=== PATIENT | female | born 1965 | race Caucasian/White ===

== ENCOUNTER 2019-01-16 11:21 | Outpatient (REF) | payer BC, SELFPAY ==
--- NOTE | 2019-01-16 08:30 | PAPFT_PTH ---
PATIENT: Yumiko Mercado LOC: [facility] U#:[id number] AGE/SX: 53/F ROOM: RE01/16/[address]: DEWAYNE Bell : 1965 BED: DIS: 01/16/2019 SPEC #: [id number] RECD: 01/16/19 12:50 STATUS: ARLINE REMitra #: [id number] MILENA: 01/16/19 08:[address]: Elva Madden DEPT: [facility] Cytology RECD BY: Nancy Ceja ENTERED: 01/16/19 12:50 SP TYPE: PAPFT OTHR DR: Yisel Harman Tissues: 1 - CX/ENDOCX FOR PAP SMEARS Procedures: PAP THIN PREP/[facility]VM Screening Comments: [id number]
== END 2019-01-16 11:41 ==
LOC: LBN 11:21
PROVIDERS: PCP Nurse Practitioner; Visit Provider Nurse Practitioner Family
DX: Z12.4 Encounter for screening for malignant neoplasm of cervix (principal)
CPT/HCPCS: 88142

== ENCOUNTER 2019-01-26 00:57 | Outpatient (CLI) | payer BC, SELFPAY ==
--- NOTE | 2019-01-26 07:35 | DI.US_ITS ---
SYMPTOM/DIAGNOSIS: ABNL BLEEDING, N93.9 PELVIC ULTRASOUND: Transabdominal and transvaginal exams were performed. The uterus measures 9.1 by 4.3 by 5.5 cm. The endometrial stripe measures 5 mm. in thickness. An IUD is seen within the endometrial cavity and appears appropriately positioned. No fibroids are seen. There is a 2.1 cm. simple cyst of the left ovary. The right ovary is unremarkable. There is no free fluid or hydronephrosis. IMPRESSION: Appropriate position of IUD. No endometrial thickening or focal abnormality.
== END 2019-01-26 01:17 ==
PROVIDERS: PCP Nurse Practitioner; Visit Provider Nurse Practitioner Family
DX: N93.9 Abnormal uterine and vaginal bleeding, unspecified (principal); N83.292 Other ovarian cyst, left side; Z30.431 Encounter for routine checking of intrauterine contraceptive device
CPT/HCPCS: 76830; 76856

== ENCOUNTER 2019-02-06 15:52 | Outpatient (REF) | payer BC, SELFPAY ==
--- NOTE | 2019-02-06 14:45 | ENDO_PTH ---
PATIENT: Yumiko Mercado LOC: [facility] U#:[id number] AGE/SX: 53/F ROOM: RE02/06/[address]: Jessica Keys MD : 1965 BED: DIS: 02/06/2019 SPEC #: [id number] RECD: 02/06/19 17:12 STATUS: ARLINE REMitra #: [id number] MILENA: 02/06/19 14:[address]: Jessica Keys DEPT: Surgical Specimen RECD BY: Nancy Ceja ENTERED: 02/06/19 17:13 SP TYPE: Endo OTHR DR: Yisel Harman Tissues: 1 - ENDOCERVICAL BX/CURRETTE 2 - CERVICAL BIOPSY 3 - CERVICAL BIOPSY 4 - CERVICAL BIOPSY Procedures: GROSS AND MICRO LEVEL 4 Comments: [id number]
== END 2019-02-06 16:12 ==
LOC: LBN 15:52
PROVIDERS: PCP Nurse Practitioner; Visit Provider Obstetrics & Gynecology
DX: N93.8 Other specified abnormal uterine and vaginal bleeding (principal); N88.8 Other specified noninflammatory disorders of cervix uteri
CPT/HCPCS: 88305

== ENCOUNTER 2019-02-09 01:26 | Outpatient (CLI) | payer BC, SELFPAY ==
--- NOTE | 2019-02-09 09:00 | DI.MAMMO_ITS ---
SYMPTOM/DIAGNOSIS: PATIENT HAS IMPLANTS. SCREENING Z 12.31 MAMMOGRAM: Mammograms were interpreted according to the usual protocol including computer analysis with CAD system, tomosynthesis and C view imaging. Comparison with prior examinations. There are bilateral breast implants. Breast density category A. No suspicious masses or microcalcifications are seen. There has been no significant change compared to the prior examinations. IMPRESSION: No evidence for malignancy. Yearly mammography is recommended. Category 1-A. MQSA ASSESSMENT OF FINDINGS: Negative. Category 1. Patient will receive a letter notifying them of these results. BI-RAD category A. The breasts are almost entirely fatty.
== END 2019-02-09 01:46 ==
PROVIDERS: PCP Nurse Practitioner; Visit Provider Nurse Practitioner Family
DX: Z12.31 Encounter for screening mammogram for malignant neoplasm of breast (principal); Z98.82 Breast implant status
CPT/HCPCS: 77063; 77067

== ENCOUNTER 2019-03-07 08:52 | Outpatient (REF) | payer BC, SELFPAY ==
[2019-03-07 12:52] LABS: TSH (W/Ref FT4) 3.85 uIU/mL (0.358-3.74)
[2019-03-07 13:07] LABS: FREE T4 0.87 ng/dL (0.76-1.46)
[2019-03-07 21:23] LABS: T3,Free 3.3 pg/ml (2.8-5.3)
== END 2019-03-07 09:12 ==
LOC: NCHCN 08:52
PROVIDERS: PCP Nurse Practitioner; Visit Provider Nurse Practitioner
DX: E05.00 Thyrotoxicosis with diffuse goiter without thyrotoxic crisis or storm (principal)
CPT/HCPCS: 84439; 84443; 84481

== ENCOUNTER 2019-05-19 08:44 | Outpatient (REF) | payer BC, SELFPAY ==
--- NOTE | 2019-05-19 08:28 | ENDOMET_PTH ---
PATIENT: Yumiko Mercado LOC: [facility] U#:[id number] AGE/SX: 54/F ROOM: RE05/19/[address]: Mor Nixon MD : 1965 BED: DIS: 05/19/2019 SPEC #: [id number] RECD: 05/19/19 13:14 STATUS: ARLINE REMitra #: [id number] MILENA: 05/19/19 08:[address]: Mor Nixon DEPT: Surgical Specimen RECD BY: Nancy Ceja ENTERED: 05/19/19 13:14 SP TYPE: Endomet OTHR DR: Yisel Harman Tissues: 1 - ENDOMETRIUM BX/STEPHANYETTE Procedures: GROSS AND MICRO LEVEL 4 Comments: [id number]
== END 2019-05-19 09:04 ==
LOC: LBN 08:44
PROVIDERS: PCP Nurse Practitioner; Visit Provider Obstetrics & Gynecology
DX: N85.8 Other specified noninflammatory disorders of uterus (principal); N85.01 Benign endometrial hyperplasia; N93.8 Other specified abnormal uterine and vaginal bleeding
CPT/HCPCS: 88305

== ENCOUNTER 2019-07-28 12:38 | Outpatient (REF) | payer BC, SELFPAY ==
[2019-07-28 15:37] LABS: TSH (W/Ref FT4) 2.89 uIU/mL (0.36-3.74)
[2019-07-28 22:13] LABS: T3,Free 3.6 pg/ml (2.8-5.3)
== END 2019-07-28 12:58 ==
LOC: NCHCN 12:38
PROVIDERS: PCP Nurse Practitioner; Visit Provider Nurse Practitioner
DX: E05.00 Thyrotoxicosis with diffuse goiter without thyrotoxic crisis or storm (principal)
CPT/HCPCS: 84443; 84481

== ENCOUNTER 2020-01-22 08:57 | Outpatient (REF) | payer BC, SELFPAY ==
--- NOTE | 2020-01-22 08:30 | PAPFT_PTH ---
PATIENT: Yumiko Mercado LOC: [facility] U#:[id number] AGE/SX: 54/F ROOM: RE01/22/[address]: DEWAYNE Bell : 1965 BED: DIS: 01/22/2020 SPEC #: [id number] RECD: 01/22/20 13:02 STATUS: ARLINE REMitra #: [id number] MILENA: 01/22/20 08:[address]: Elva Madden DEPT: [facility] Cytology RECD BY: Nancy Ceja ENTERED: 01/22/20 13:02 SP TYPE: PAPFT OTHR DR: Yisel Harman Tissues: 1 - CX/ENDOCX FOR PAP SMEARS Procedures: PAP THIN PREP/UVM Screening HPV DNA PROBE Comments: [id number]
== END 2020-01-22 09:17 ==
LOC: LBN 08:57
PROVIDERS: PCP Nurse Practitioner; Visit Provider Nurse Practitioner Family
DX: Z12.4 Encounter for screening for malignant neoplasm of cervix (principal); Z11.51 Encounter for screening for human papillomavirus (HPV)
CPT/HCPCS: 88142; 87624

== ENCOUNTER 2020-02-29 07:51 | Outpatient (REF) | payer BC, SELFPAY ==
[2020-02-29 18:37] LABS: TSH (W/Ref FT4) 3.42 uIU/mL (0.36-3.74)
== END 2020-02-29 08:11 ==
LOC: NCHCN 07:51
PROVIDERS: PCP Nurse Practitioner; Visit Provider Nurse Practitioner
DX: E05.00 Thyrotoxicosis with diffuse goiter without thyrotoxic crisis or storm (principal)
CPT/HCPCS: 84443

== ENCOUNTER 2020-12-03 01:14 | Outpatient (CLI) | payer BC, SELFPAY ==
--- NOTE | 2020-12-03 | DI.MAMMO_ITS ---
EXAM: MG MAMMO SCREENING CLINICAL HISTORY: SCREENING,Z12.39 TECHNIQUE: Bilateral full field digital CC and MLO mammographic images were obtained with 3D tomosyn thesis and utilizing computer aided detection (CAD). COMPARISON: Available for comparison. FINDINGS: Masses/Architectural Distortion: None seen. There are stable bilateral breast implants again seen. Microcalcifications: No suspicious pleomorphic-type are seen. Skin Thickening/Nipple Retraction: None. IMPRESSION: 1. No significant interval change with no specific features of malignancy noted. 2. Unless there is more urgent need, screening mammography is recommended, as per [place] [employer] guidelines. BI-RADS Category 1 - Negative Breast Density - Category A - Almost entirely fatty Breast density category C or D implies that the patient has dense breast tissue. Dense breast tissue is very common and is not abnormal but dense breast tissue can make it harder to find cancer on a ma mmogram. Also, dense breast tissue may increase their breast cancer risk. This information about the result of the mammogram report was provided to the patient to raise their awareness. Use this report when you speak with the patient about their risks for breast cancer, which includes their family hist ory. At that time, you may recommend for more screening tests (Ultrasound or MRI) as they might be us eful based on their risk. A negative radiographic report should not delay biopsy if a dominant or clinically suspicious mass is present. Up to ten percent of cancers are not identified on mammography. A negative report may reinforce clinical impression. Adenosis and dense breasts may obscure an underlying neoplasm. False positive reports average 6 to 10%. Patient will receive a letter notifying them of these results.
== END 2020-12-03 01:34 ==
PROVIDERS: PCP Nurse Practitioner; Visit Provider Nurse Practitioner
DX: Z12.31 Encounter for screening mammogram for malignant neoplasm of breast (principal); Z98.82 Breast implant status
CPT/HCPCS: 77063; 77067

== ENCOUNTER 2021-11-17 17:00 | Outpatient (REF) | payer BC, SELFPAY ==
--- NOTE | 2021-11-17 15:00 | PAPFT_PTH ---
PATIENT: Yumiko Mercado LOC: [facility] U#:[id number] AGE/SX: 56/F ROOM: RE11/17/[address]: DEWAYNE Blel : 1965 BED: DIS: 11/17/2021 SPEC #: [id number] RECD: 11/17/21 17:48 STATUS: ARLINE REQ #: [id number] MILENA: 11/17/21 15:[address]: Elva Madden DEPT: [facility] Cytology RECD BY: Nancy Ceja ENTERED: 11/17/21 17:48 SP TYPE: PAPFT OTHR DR: Yisel Harman Tissues: 1 - CX/ENDOCX FOR PAP SMEARS Procedures: PAP THIN PREP/UVM Screening HPV DNA PROBE Comments: [id number]
== END 2021-11-17 17:01 | disposition home or self-care (01) ==
LOC: LBN 17:00
PROVIDERS: PCP Nurse Practitioner; Visit Provider Nurse Practitioner Family
DX: Z12.4 Encounter for screening for malignant neoplasm of cervix (principal); Z11.51 Encounter for screening for human papillomavirus (HPV)
CPT/HCPCS: 88142; 87624

== ENCOUNTER 2022-03-12 19:22 | Outpatient (REF) | payer BC, SELFPAY ==
[2022-03-12 20:42] LABS: ALT 34 U/L (14-59); AST 24 U/L (15-37); Albumin 4.2 g/dL (3.4-5.0); Alkaline Phosphatase 105 U/L (46-116); Anion Gap 8.7 mmol/L (3-11); BUN 20 mg/dL (7-18); Bilirubin, Total 0.4 mg/dL (0.2-1.0); CO2 28.3 mmol/L (21.0-32.0); CREATININE 0.9 mg/dL (0.55-1.02); Calcium 9.2 mg/dL (8.5-10.1); Chloride 104 mmol/L (98-107); FREE T4 0.99 ng/dL (0.76-1.46); Glucose 96 mg/dL (74-106); Potassium 4.1 mmol/L (3.5-5.1); Sodium 141 mmol/L (136-145); TSH 0.19 uIU/mL (0.36-3.74); Total Protein 7.5 g/dL (6.4-8.2)
[2022-03-13 17:18] LABS: T3,Free 3.7 pg/mL (2.8-5.3)
== END 2022-03-12 19:23 | disposition home or self-care (01) ==
LOC: NCHCN 19:22
PROVIDERS: PCP Nurse Practitioner; Visit Provider Nurse Practitioner Family
DX: Z00.00 Encounter for general adult medical examination without abnormal findings (principal); E05.00 Thyrotoxicosis with diffuse goiter without thyrotoxic crisis or storm
CPT/HCPCS: 80053; 84439; 84443; 84481

== ENCOUNTER 2022-12-28 16:10 | Outpatient (REF) | payer BC, SELFPAY ==
--- NOTE | 2022-12-28 16:00 | PAPFT_PTH ---
PATIENT: Yumiko Mercado LOC: [facility] U#:[id number] AGE/SX: 57/F ROOM: RE12/28/[address]: Damaris Gonzales NP : 1965 BED: DIS: 12/28/2022 SPEC #: [id number] RECD: 12/28/22 17:41 STATUS: ARLINE REMitra #: [id number] MILENA: 12/28/22 16:[address]: Damaris Gonzales NP DEPT: [facility] Cytology RECD BY: Nancy Ceja ENTERED: 12/28/22 17:42 SP TYPE: PAPFT OTHR DR: Yisel Harman Tissues: 1 - CX/ENDOCX FOR PAP SMEARS Procedures: PAP THIN PREP/UVM Screening HPV DNA PROBE Comments: [id number]
== END 2022-12-28 16:11 | disposition home or self-care (01) ==
LOC: LBN 16:10
PROVIDERS: PCP Nurse Practitioner; Visit Provider Nurse Practitioner Women's Health
DX: Z12.4 Encounter for screening for malignant neoplasm of cervix (principal); Z11.51 Encounter for screening for human papillomavirus (HPV); Z87.410 Personal history of cervical dysplasia
CPT/HCPCS: 88142; 87624

== ENCOUNTER 2023-01-04 01:15 | Outpatient (CLI) | payer BC, SELFPAY ==
--- NOTE | 2023-01-04 07:30 | DI.MAMMO_ITS ---
Exam(s) MG MAMMO SCREENING 60 MIN DUR EXAM: MG MAMMO SCREENING 60 MIN DUR CLINICAL HISTORY: breast cancer screening,AUGMENTATION MAMMOPLASTY,Z12.39 TECHNIQUE: Bilateral full field digital CC and MLO mammographic images were obtained with 3D tomosyn thesis and utilizing computer aided detection (CAD). COMPARISON: Available for comparison. FINDINGS: Masses/Architectural Distortion: There again seen stable bilateral breast implants. No suspicious ma sses or areas of architectural distortion are present. Microcalcifications: No suspicious pleomorphic-type are seen. Skin Thickening/Nipple Retraction: None. IMPRESSION: 1. No significant interval change with no specific features of malignancy noted. 2. Unless there is more urgent need, screening mammography is recommended, as per [place] [employer] guidelines. BI-RADS Category 1 - Negative Breast Density - Category A - Almost entirely fatty Breast density category C or D implies that the patient has dense breast tissue. Dense breast tissue is very common and is not abnormal but dense breast tissue can make it harder to find cancer on a ma mmogram. Also, dense breast tissue may increase their breast cancer risk. This information about the result of the mammogram report was provided to the patient to raise their awareness. Use this report when you speak with the patient about their risks for breast cancer, which includes their family hist ory. At that time, you may recommend for more screening tests (Ultrasound or MRI) as they might be us eful based on their risk. A negative radiographic report should not delay biopsy if a dominant or clinically suspicious mass is present. Up to ten percent of cancers are not identified on mammography. A negative report may reinforce clinical impression. Adenosis and dense breasts may obscure an underlying neoplasm. False positive reports average 6 to 10%. Patient will receive a letter notifying them of these results.
== END 2023-01-04 01:35 ==
LOC: DI 01:15
PROVIDERS: PCP Nurse Practitioner; Visit Provider Nurse Practitioner Women's Health
DX: Z12.31 Encounter for screening mammogram for malignant neoplasm of breast (principal); Z98.82 Breast implant status
CPT/HCPCS: 77063; 77067

== ENCOUNTER 2023-04-12 18:44 | Outpatient (REF) | payer BC, SELFPAY ==
[2023-04-12 20:17] LABS: BUN 22 mg/dL (7-18); Calcium 9.4 mg/dL (8.5-10.1); Calculated LDL 101 mg/dL (<100); Chloride 105 mmol/L (98-107); Cholesterol 182 mg/dL (<200); Estimated GFR 66.53 (mL/min/1.73m2); Glucose 88 mg/dL (74-106); HDL Cholesterol 70 mg/dL (40-60); Potassium 4.2 mmol/L (3.5-5.1); Sodium 142 mmol/L (136-145); TSH (W/Ref FT4) 3.88 uIU/mL (0.36-3.74); Triglyceride 56 mg/dL (<150)
[2023-04-12 20:35] LABS: FREE T4 0.89 ng/dL (0.76-1.46)
[2023-04-13 19:24] LABS: T3,Free 3.7 pg/mL (2.8-5.3)
== END 2023-04-12 18:45 | disposition home or self-care (01) ==
LOC: NCHCN 18:44
PROVIDERS: PCP Nurse Practitioner Family; Visit Provider Nurse Practitioner Family
DX: Z00.00 Encounter for general adult medical examination without abnormal findings (principal); E05.00 Thyrotoxicosis with diffuse goiter without thyrotoxic crisis or storm; Z13.220 Encounter for screening for lipoid disorders
CPT/HCPCS: 80048; 80061; 84439; 84443; 84481

== ENCOUNTER 2023-12-24 10:13 | Outpatient (REF) | payer BC, SELFPAY ==
--- NOTE | 2023-12-24 10:00 | ENDOMET_PTH ---
PATIENT: Yumiko Mercado LOC: [facility] U#:[id number] AGE/SX: 58/F ROOM: RE12/24/[address]: Kerri Restrepo DO : 1965 BED: DIS: 12/24/2023 SPEC #: [id number] RECD: 12/24/23 11:47 STATUS: ARLINE REQ #: [id number] MILENA: 12/24/23 10:[address]: Kerri Restrepo DEPT: Surgical Specimen RECD BY: Nancy Ceja ENTERED: 12/24/23 11:48 SP TYPE: Endomet OTHR DR: MAGALYS MAYORGA NP Tissues: 1 - ENDOMETRIUM BX/STEPHANYETTE Procedures: GROSS AND MICRO LEVEL 4 Comments: [id number]
== END 2023-12-24 10:14 | disposition home or self-care (01) ==
LOC: LBN 10:13
PROVIDERS: PCP Nurse Practitioner Family; Visit Provider Obstetrics & Gynecology
DX: N84.0 Polyp of corpus uteri (principal); N95.0 Postmenopausal bleeding; R93.89 Abnormal findings on diagnostic imaging of other specified body structures
CPT/HCPCS: 88305

== ENCOUNTER → 2024-01-18 03:56 | Outpatient (CLI) | payer BC, SELFPAY ==
--- NOTE | 2024-01-18 07:30 | DI.MAMMO_ITS ---
Exam(s) MG MAMMO SCREENING 60 MIN DUR EXAM: MG MAMMO SCREENING 60 MIN DUR CLINICAL HISTORY: breast cancer screening,IMPLANTS, Z12.39. TECHNIQUE: Bilateral full field digital CC and MLO mammographic images were obtained with 3D tomosyn thesis and utilizing computer aided detection (CAD). Both conventional and implant displacement views were performed. COMPARISON: Prior mammograms were reviewed. FINDINGS: There are intact appearing retropectoral breast implants again noted. There are no CAD designations. There are no new spiculated masses nor malignant appearing microcalcification groups. There is no significant architectural distortion nor skin thickening-retraction. IMPRESSION: No radiographic evidence of malignancy. BI-RADS Category 1 - Negative Breast Density - Category A - Almost entirely fatty Breast density Category C or D implies that the patient has dense breast tissue. Dense breast tissue can make it harder to find cancer on a mammogram. Dense breast tissue is also associated with an incr eased risk of breast cancer. This information about the result of the mammogram report was provided to the patient to raise their awareness. Use this report when you speak with the patient about their risks for breast cancer, which includes their family history. At that time, you may recommend additional screening tests (Ultrasoun d or MRI) as these tests may add significant information. A negative radiographic report should not delay biopsy if a dominant or clinically suspicious mass is present. Up to ten percent of cancers are not identified on mammography. A negative report may reinforce clinical impression. Adenosis and dense breasts may obscure an underlying neoplasm. False positive reports average 6 to 10%. Patient will receive a letter notifying them of these results.
== END ==
PROVIDERS: PCP Nurse Practitioner Family; Visit Provider Obstetrics & Gynecology
DX: Z12.31 Encounter for screening mammogram for malignant neoplasm of breast (principal)
CPT/HCPCS: 77063; 77067

== ENCOUNTER 2024-08-14 19:49 | Outpatient (REF) | payer OTHER, SELFPAY ==
[2024-08-14 18:41] LABS: Anion Gap 2.5 mmol/L (3-11); BUN 21 mg/dL (7-18); CO2 31.5 mmol/L (21.0-32.0); CREATININE 0.9 mg/dL (0.55-1.02); Calcium 9.5 mg/dL (8.5-10.1); Chloride 105 mmol/L (98-107); Estimated GFR 74.57 (mL/min/1.73m2); Glucose 91 mg/dL (74-106); Potassium 4.2 mmol/L (3.5-5.1); Sodium 139 mmol/L (136-145); TSH (W/Ref FT4) 2.25 uIU/mL (0.36-3.74)
--- OUTSIDE RECORDS SUMMARY | 2024-08-14 19:57 | XMS_ITS | Referral Summary ---
Author Organization [facility] Address [address] [place] [address] Care Team Providers Care Urologist Name Role Phone Yisel Haramn ADULT DAYCARE COORDINATOR Primary Care Provider [phone] Social History Tobacco Use Types Packs/Day Years Used Date Smoking Tobacco: Never Assessed Interpersonal Safety Answer Date Record ed Physically Hurt Never 06/30/2020 Verbally Threaten Not on file 06/30/2020 Sex and Gender Information Value Date Recorded Sex Assigned at Not on file Gender Identity Not on file Sexual Orientation Not on file Plan of Treatment Not on file Care Teams Urologist Relationship Specialty Start Date End Date Yisel Harman NP [facility] [address] [place], [place] [address] PCP - General 05/04/18
--- OUTSIDE RECORDS SUMMARY | 2024-08-14 19:57 | XMS_ITS | Encounter Summary ---
Author Organization [facility] Address [address] [place] [address] Care Team Providers Care Engineering Consultant Name Role Phone JanetYisel white VIDEO GAME REPAIR TECHNICIAN Primary Care Provider [phone] Encounter Details Date Type Department Care Team (Late st Contact Info) Description 12/30/2022 Lab Requisition [facility] Pathology & Laboratory Medicine - [address] [address] Damaris Gonzales, METAL CUT OFF SAW TENDER [address] [place] [id number] Encounter for other general examination Social History Tobacco Use Types Packs/Day Years Used Date Smoking Tobacco: Never Assessed Interpersonal Safety Answer Date Record ed Physically Hurt Never 06/30/2020 Verbally Threaten Not on file 06/30/2020 Sex and Gender Information Value Date Recorded Sex Assigned at Not on file Gender Identity Not on file Sexual Orientation Not on file documented as of this encounter Plan of Treatment Not on file documented as of this encounter Procedures Procedure Name Priority Date/Time Associated Diagnosis Comments PAP TEST Today 12/28/2022 16:00 EST Encounter for other general examination HPV DNA DETECTION WITH GENOTYPING, PCR Today 12/28/2022 16:00 EST Encounter for other general examination documented in this encounter Results * HUMAN PAPILLOMAVIRUS (HPV) DETECTION-HIGH RISK TYPES (12/28/2022 16:00 EST) HPV other High Risk types, PCR Negative Negative 01/07/2023 16:13 [facility] Comment:No E6 or E7 mRNA is detected from HPV types 16,18,31,33,35,39,45,51,52,56,58,59,66, and 68 by rn homecare mediated amplification. Papanicolaou smear specimen (specimen) CERVIX UTERI STRUCTURE / Unknown 12/28/2022 16:00 EST 01/06/2023 11:41 EST Damaris Gonzales APRN MICROBIOLOGY - GE NERAL ORDERABLES [facility] [address] [place] [address] * PAP TEST (12/28/2022 16:00 EST) Specimens A. Cervix and/or Endocervix , ThinPrep Imaging System with Manual Evaluation 01/07/2023 16:13 [facility] Specimen Adequacy Satisfactory for Evaluation - assessment of transformation zone component not applicable ( e.g. atrophy, vaginal sample, hysterectomy) 01/07/2023 16:13 [facility] General Categorization Negative for intraepithelial lesion or malignancy 01/07/2023 16:13 [facility] Attestation . 01/07/2023 16:13 [facility] at 1613 Clinical History See below 01/07/20 23 16:13 [facility] HPV The result for the Human Papillomavirus (HPV) Detection-High Risk Types is Negative. No E6 or E7 mRNA is detected from HPV types 16,18,31,33,35,39 ,45,51,52,56,58,5 9,66, and 68 by rn homecare mediated amplification.Tammy ting was performed on specimen [id number] and was resulted on 01/07/2023 1613 EST by TONI, LAB INSTRUMENT RESULTS IN 01/07/2023 16:13 [facility] Performing Lab [facility] 01/07/2023 16:13 [facility] Scanned Images 01/07/2023 16:13 EST [facility] Papanicolaou smear specimen (specimen) CERVIX UTERI STRUCTURE / Unknown 12/28/2022 16:00 EST 12/30/2022 9:43 EST Damaris Gonzales METAL CUT OFF SAW TENDER PATHOLOGY ORDERAB LES Performing Organization Address City/State/[facility] Co de Phone Number [facility] [address] [place] [address] documented in this encounter Visit Diagnoses Diagnosis Encounter for other general examination documented in this encounter Care Teams Engineering Consultant Relationship Specialty Start Date End Date Yisel Harman NP [address] [place] [address] PCP - General 05/04/18 documented as of this encounter
--- OUTSIDE RECORDS SUMMARY | 2024-08-14 19:57 | XMS_ITS | Encounter Summary ---
Author Organization [facility] Address [address] [place] [address] Care Team Providers Care Mold Design Engineer Name Role Phone Ghazal Yisel ARC CUTTER PLASMA ARC Primary Care Provider [phone] Encounter Details Date Type Department Care Team (Late st Contact Info) Description 12/24/2023 Lab Requisition [facility] Pathology & Laboratory Medicine - [facility] [address] [place] [address] Kerri Restrepo [address] [place] [address] [place] [phone] Encounter for other general examination Social History [...] Procedure Name Priority Date/Time Associated Diagnosis Comments SURGICAL PATHOLOGY Today 12/24/2023 10 :00 EST Encounter for other general examination documented in this encounter Results * SURGICAL PATHOLOGY (12/24/2023 10:00 EST) Note to Patient The following pathology results have been interpreted by your pathologist and may be available to you before your health provider has had the opportunity to review them. Please allow time for your provider to receive these results and explore management options, if applicable. 12/28/2023 10:07 [facility] Final Diagnosis A. ENDOMETRIUM, BIOPSY: - Polypoid fragments of secretory-type endometrium. 12/28/2023 10:07 [facility] Attestation There was significant resident/fellow involvement in the diagnostic evaluation of this case. By the signature below, the attending physician certifies that they have personally conducted a gross and/or microscopic examination of the described specimens and rendered or confirmed the above diagnosis. 12/28/2023 10:07 [facility] at 1007 Clinical History Thickened endometrial stripe in postmenopausal period, postmenopausal bleeding 12/28/2023 10:07 [facility] Gross Description A. Received in formalin labelled with proper patient identification (initials H, S) and endometrium is an aggregate of gee soft tissues and a scant amount of admixed blood clot (0.9 x 0.7 x 0.2 cm). Entirely submitted in A1. Brittany Palmer 12/25/2023 10:44 12/28/2023 10:07 [facility] Resident/Sean w: Da Wang MD 12/28/2023 10:07 [facility] Performing Lab [facility] 12/28/2023 10:07 [facility] Scanned Images 12/28/2023 10:07 [facility] Tissue ENDOMETRIAL STRUCTURE / Unknown 12/24/2023 10:00 EST 12/24/2023 17:03 EST Kerri Restrepo PATHOLOGY ORDERABLES [facility] [address] [place] [address] documented in this encounter Visit Diagnoses Diagnosis Encounter for other general examination documented in this encounter Care Teams Mold Design Engineer Relationship Specialty Start Date End Date Yisel Harman NP [address] [place] [address] PCP - General 05/04/18 documented as of this encounter
--- OUTSIDE RECORDS SUMMARY | 2024-08-14 19:57 | XMS_ITS | Encounter Summary ---
Author Organization [facility] Address [address] [place] [address] Care Team Providers Care Packaging Sales Representative Name Role Phone Yisel Harman FARM TRACTOR MECHANIC Primary Care Provider [phone] Encounter Details Date Type Department Care Team (Latest Contact Info) Description 05/19/2019 15:16 EDT - 05/19/2019 23:59 EDT Hospital Encounter [address] [address] Unknown, Provider, Discharge Disposition: Home or Self Care Social History Tobacco Use Types Packs/Day Years Used Date Smoking Tobacco: Never Assessed Sex and Gender Information Value Date Recorded Sex Assigned at Not on file Gender Identity Not on file Sexual Orientation Not on file documented as of this encounter Discharge Disposition Disposition Code Departure Means Destination Home or Self Senior Care documented in this encounter Plan of Treatment Not on file documented as of this encounter Visit Diagnoses Not on filedocumented in this encounter Care Teams Packaging Sales Representative Relationship Specialty Start Date End Date Yisel Harman [place] [address] PCP - General 05/04/18 documented as of this encounter
--- OUTSIDE RECORDS SUMMARY | 2024-08-14 19:57 | XMS_ITS | Encounter Summary ---
Author Organization [facility] Address [address] [place] [address] Care Team Providers Care Document Examiner Name Role Phone Yisel Pringle DESIGN AND SALES CONSULTANT Primary Care Provider [phone] Encounter Details Date Type Department Care Team (Late st Contact Info) Description 05/19/2019 Results Only [facility] [phone] Norberto Benedict MD [address] [place] [id number] Social History Tobacco Use Types Packs/Day Years Used Date Smoking Tobacco: Never Assessed Sex and Gender Information Value Date Recorded Sex Assigned at Not on file Gender Identity Not on file Sexual Orientation Not on file documented as of this encounter Plan of Treatment Not on file documented as of this encounter Procedures Procedure Name Priority Date/Time Associated Diagnosis Comments SURGICAL PATHOLOGY Routine 05/19/2019 16 :32 EDT documented in this encounter Results * SURGICAL PATHOLOGY (05/19/2019 16:32 EDT) Pathology Report: SURGICAL PATHOLOGY REPORT Reports generated via electronic interface contain original data; however they are lacking the format of the original report. Caution should be taken when reading/interpret ing unformatted reports. Name: ? MOLLY WEBER ? Accession #: ? [id number] ? : ? 1965 (Age: 54) ??F ? Collect Date: ? 05/19/2019 ? Location: ? [facility] ? Receive Date: ? 05/19/2019 ? Provider: NORBERTO BENEDICT MD Copy to: YISEL PRINGLE NP ? Final Pathologic Diagnosis: ENDOMETRIUM CORE BIOPSY: - Endometrial tissue with inactive end atrophic endometrial glands and stromal changes suspicious pole exogenous progesterone effect. Document reviewed and electronically signed by: Vasquez Gordillo MD Report ??Date: 05/23/2019 07:08 By the signature above, the attending physician certifies that he/she has personally conducted a gross and/or microscopic examination of the described specimens and rendered or confirmed the above diagnosis. Specimen(s) Received: Endometrial biopsy Clinical History: Abnormal uterine bleeding; fax results to [phone] Gross Description: ? Received in formalin labelled with proper patient identification (initials H, S) and endometrium endometrial biopsy is an aggregate of gee-bob tissue with admixed blood clot, 0.8 x 0.6 x 0.1 cm. Entirely submitted in 1. ERIKA Schrader (ASCP) 05/19/2019 5:03 PM End of Report [facility] 05/19/2019 16:3 2 EDT 05/19/2019 16:32 EDT Norberto Benedict MD PATHOLOGY ORDERABLES [facility] [address] [place] [address] documented in this encounter Visit Diagnoses Not on filedocumented in this encounter Care Teams Document Examiner Relationship Specialty Start Date End Date Yisel Pringle NP [facility] [place] [address] [place] [address] PCP - General 05/04/18 documented as of this encounter
--- OUTSIDE RECORDS SUMMARY | 2024-08-14 19:57 | XMS_ITS | Encounter Summary ---
Author Organization [facility] Address [address] [place] [address] Care Team Providers Care Furnace Cooler Name Role Phone Unknown, Provider Primary Care Provider [phone] Encounter Details Date Type Department Care Team (Late st Contact Info) Description 12/23/2015 Results Only [facility] [phone] Elva Madden, [address] [place] [address] Social History Tobacco Use Types Packs/Day Years Used Date Smoking Tobacco: Never Assessed Sex and Gender Information Value Date Recorded Sex Assigned at Not on file Gender Identity Not on file Sexual Orientation Not on file documented as of this encounter Plan of Treatment Not on file documented as of this encounter Procedures Procedure Name Priority Date/Time Associated Diagnosis Comments PAP TEST- RESULT ONLY Routine 12/23/2015 0:00 EST documented in this encounter Results * PAP TEST- RESULT ONLY (12/23/2015 0:00 EST) Pathology Report: CYTOPATHOLOGY REPORT Reports generated via electronic interface contain original data; however they are lacking the format of the original report. Caution should be taken when reading/interpreti ng unformatted reports. Name: ? MOLLY WEBER ? Accession #: ? [id number] : ? 1965 (Age: 50) ??F ?Collect Date: ? 12/23/2015 Location: ? [facility] ? Receive Date: ? 12/24/2015 Provider: ?ELVA MADDEN REAL ESTATE LAWYER Copy to: ?SOHAIL WATSON PRODUCT TEST ENGINEER ? Specimen/Source: ?Pap Test, Cervix/Endocervix, ThinPrep Imaging System with manual evaluation Last Menstrual Period: ? 11/22/2015 Previous Gynecologic Pathology: ? NATE III: 2008 ? SPECIMEN ADEQUACY ? Satisfactory for Evaluation - transformation zone component present GENERAL CATEGORIZATION ? Negative for Intraepithelial Lesion or Malignancy ? Document reviewed and electronically signed by: ? LAILA Rock(ASCP) ? Report Date: ??12/30/2015 10:27 End of Report [facility] 12/23/2015 12/24/2015 Elva Madden REAL ESTATE LAWYER PATHOLOGY ORDERABLES Performing Organization Address City/State/[facility] Co de Phone Number [facility] [address] [place] [address] documented in this encounter Visit Diagnoses Not on filedocumented in this encounter Care Teams Furnace Cooler Relationship Specialty Start Date End Date Unknown, Provider, PCP - General 10/02/15 05/03/18 documented as of this encounter
--- OUTSIDE RECORDS SUMMARY | 2024-08-14 19:57 | XMS_ITS | Encounter Summary ---
Author Organization [facility] Address [address] [place] [address] Care Team Providers Care Engineer Exhauster Name Role Phone JanetjuaquinorvilleYisel ANATOMY AND PHYSIOLOGY INSTRUCTOR Primary Care Provider [phone] Encounter Details Date Type Department Care Team (Late st Contact Info) Description 03/13/2022 Lab Requisition [facility] Pathology & Laboratory Medicine - [address] [id number] Outr Resulting Lab, Provider Social History Tobacco Use Types Packs/Day Years [...] Procedure Name Priority Date/Time Associated Diagnosis Comments T3 FREE Routine 03/12/2022 16:18 EDT documented in this encounter Results * T3 FREE (03/12/2022 16:18 EDT) T3, Free 3.7 2.8 - 5.3 pg/mL 03/13/2022 17:14 EDT [facility] Blood VENOUS BLOOD / Unknown 03/12/2022 16:18 EDT 03/13/2022 16:29 EDT Provider Outr Resulting Lab CHEMISTRY & BLOOD GAS ORDERABLES [facility] [address] [place] [address] documented in this encounter Visit Diagnoses Not on filedocumented in this encounter Care Teams Engineer Exhauster Relationship Specialty Start Date End Date Yisel Harman NP [address] [place] [address] PCP - General 05/04/18 documented as of this encounter
--- OUTSIDE RECORDS SUMMARY | 2024-08-14 19:57 | XMS_ITS | Encounter Summary ---
Author Organization [facility] Address [address] [place] [address] Care Team Providers Care Lime Kiln And Recausticizing Operator Name Role Phone Yisel Harman PYROMETALLURGICAL ENGINEER Primary Care Provider [phone] Encounter Details Date Type Department Care Team (Latest Contact Info) Description 02/06/2019 11:12 EDT - 02/06/2019 23:59 EDT Hospital Encounter [address] [address] Unknown, Provider, Discharge Disposition: Home or Self Care Social History Tobacco Use Types Packs/Day Years Used Date Smoking Tobacco: Never Assessed Sex and Gender Information Value Date Recorded Sex Assigned at Not on file Gender Identity Not on file Sexual Orientation Not on file documented as of this encounter Discharge Disposition Disposition Code Departure Means Destination Home or Self Longterm documented in this encounter Plan of Treatment Not on file documented as of this encounter Visit Diagnoses Not on filedocumented in this encounter Care Teams Lime Kiln And Recausticizing Operator Relationship Specialty Start Date End Date Yisel Harman [place] [address] PCP - General 05/04/18 documented as of this encounter
--- OUTSIDE RECORDS SUMMARY | 2024-08-14 19:57 | XMS_ITS | Encounter Summary ---
Author Organization [facility] Address [address] [place] [address] Care Team Providers Care Enterprise Systems Manager Name Role Phone JanetYisel white WASHER MACHINE Primary Care Provider [phone] Encounter Details Date Type Department Care Team (Late st Contact Info) Description 01/16/2019 Results Only [facility] [phone] Elva Madden, [address] [place] [address] Social History Tobacco Use Types [...] Diagnosis Comments PAP TEST- RESULT ONLY Routine 01/16/2019 0:00 EST documented in this encounter Results * PAP TEST- RESULT ONLY (01/16/2019 0:00 EST) Pathology Report: CYTOPATHOLOGY REPORT Reports generated via electronic interface contain original data; however they are lacking the format of the original report. Caution should be taken when reading/interpreting unformatted reports. Name: ? MOLLY WEBER ? Accession #: ? [id number] : ? 1965 (Age: 53) ??F ?Collect Date: ? 01/16/2019 Location: ? [facility] ? Receive Date: ? 01/17/2019 Provider: ?ELVA EVA SUPERVISOR [employer]HALT PAVING Copy to: ?YISEL YARY WASHER MACHINE ? Specimen/Source: ?Pap Test, Cervix, ThinPrep Imaging System with manual evaluation Last Menstrual Period: ? Hormonal/Contracepti ve Status: ? Intrauterine device Previous Gynecologic Pathology: ? NATE III: 2008 ? SPECIMEN ADEQUACY ? Satisfactory for Evaluation - transformation zone component present - scant squamous epithelial component secondary to excessive blood GENERAL CATEGORIZATION ? Other, see interpretation INTERPRETATION ? Endometrial cells present in a woman equal to or greater than age 45. Negative for Intraepithelial Lesion. EDUCATIONAL NOTES/RECOMMENDATION S ? ASCCP management guidelines advises using histologic endometrial assessment only in postmenopausal women. Benign appearing endometrial cells on Pap tests are usually a normal finding in women with regular menstrual cycles, especially if the Pap test was collected during the first half of the menstrual cycle. There is data showing that endometrial cells on Pap tests may be associated with endometrial/uterine abnormalities in post menopausal women or in perimenopausal women with abnormal bleeding. There is limited data on the significance of benign endometrial cells in post menopausal women on HRT. ??Clinical correlation is recommended. Note: ??The Pap test is not an accurate test for the screening of endometrial lesions and should not be used as a follow up in patients with clinical suspicion of endometrial pathology. An additional slide was prepared and evaluated. ? COMMENT Sap Hana Architect slides of this case were reviewed at the intradepartmental consultation conference. Dr. Frost 01/19/2019 3:32 PM ? Document reviewed and electronically signed by: ? ASHLYN FROST MD ? Report Date: ??01/19/2019 15:32 End of Report [facility] 01/16/2019 01/17/2019 Elva Madden SUPERVISOR ASPHALT PAVING PATHOLOGY ORDERABLES [facility] [address] [place] [address] documented in this encounter Visit Diagnoses Not on filedocumented in this encounter Care Teams Enterprise Systems Manager Relationship Specialty Start Date End Date Yisel Harman NP [address] [place] [address] PCP - General 05/04/18 documented as of this encounter
--- OUTSIDE RECORDS SUMMARY | 2024-08-14 19:57 | XMS_ITS | Encounter Summary ---
Author Organization [facility] Address [address] [place] [address] Care Team Providers Care Electron Beam Photo Mask Maker Name Role Phone JanetYisel white UTILITY PORTER Primary Care Provider [phone] Encounter Details Date Type Department Care Team ([facility] st Contact Info) Description 02/06/2019 Results Only [facility] [phone] Zoie Keys MD [address] [place] [address] Social History Tobacco Use Types Packs/Day Years Used Date Smoking Tobacco: Never Assessed Sex and Gender Information Value Date Recorded Sex Assigned at Not on file Gender Identity Not on file Sexual Orientation Not on file documented as of this encounter Plan of Treatment Not on file documented as of this encounter Procedures Procedure Name Priority Date/Time Associated Diagnosis Comments SURGICAL PATHOLOGY Routine 02/06/2019 22 :16 EDT documented in this encounter Results * SURGICAL PATHOLOGY (02/06/2019 22:16 EDT) Pathology Report: SURGICAL PATHOLOGY REPORT Reports generated via electronic interface contain original data; however they are lacking the format of the original report. Caution should be taken when reading/interpret ing unformatted reports. Name: ? MOLLY WEBER ? Accession #: ? [id number] ? : ? 1965 (Age: 53) ??F ? Collect Date: ? 02/06/2019 ? Location: ? [facility] ? Receive Date: ? 02/06/2019 ? Provider: ZOIE KEYS MD Copy to: SHO VELASQUEZ ULTRASONIC CLEANER YISEL PRINGLE UTILITY PORTER ? Final Pathologic Diagnosis: A. ??ENDOCERVIX, CURETTAGE: - Fragments of benign endocervical mucosa. - Superficial strips of benign squamous epithelium. - Fragments of benign lower uterine segment tissue. B. ??CERVIX, 1 O'CLOCK, BIOPSY: - Transformation zone mucosa with reactive epithelial change. C. ??CERVIX, 6 O'CLOCK, BIOPSY: - Benign squamous mucosa. D. ??CERVIX, 8 O'CLOCK, BIOPSY: - Benign transformation zone mucosa with reactive epithelial change. Document reviewed and electronically signed by: ALFONZO GALLAGHER MD Report ??Date: 02/08/2019 12:26 By the signature above, the attending physician certifies that he/she has personally conducted a gross and/or microscopic examination of the described specimens and rendered or confirmed the above diagnosis. Specimen(s) Received: A. ??ECC B. ??Cx bx at 1 o'clock C. ??Cx bx at 6 o'clock D. ??Cx bx at 8 o'clock Clinical History: Abnormal bleeding; hx LEEP and cone bx; LMP: 02/03/19 BTL Gross Description: A. ?Received in formalin labelled with proper patient identification (initials H, S) and ECC is an aggregate of gee-brown mucous (0.8 x 0.6 x 0.3 cm). Submitted in toto in A1. B. ?Received in formalin labelled with proper patient identification (initials H, S) and cx bx at 1 o'clock is an aggregate of gee-white soft tissue and mucus (0.6 x 0.5 x 0.3 cm). Submitted in toto in B1. C. ?Received in formalin labelled with proper patient identification (initials H, S) and cx bx at 6 o'clock is an aggregate of gee-brown soft tissue (0.5 x 0.5 x 0.3 cm). Submitted in toto in C1. D. ?Received in formalin labelled with proper patient identification (initials H, S) and cx bx at 8 o'clock is an aggregate of gee-white soft tissue (0.6 x 0.4 x 0.3 cm). Submitted in toto in D1. ERIKA Diaz (ASCP) 02/07/2019 8:29 AM End of Report [facility] 02/06/2019 22:1 6 EDT 02/06/2019 22:16 EDT Zoie Keys MD PATHOLOGY ORDERABLES Performing Organization Address City/State/[facility] Co de Phone Number [facility] [address] [place] [address] documented in this encounter Visit Diagnoses Not on filedocumented in this encounter Care Teams Electron Beam Photo Mask Maker Relationship Specialty Start Date End Date Yisel Pringle [place] [address] PCP - General 05/04/18 documented as of this encounter
--- OUTSIDE RECORDS SUMMARY | 2024-08-14 19:57 | XMS_ITS | Encounter Summary ---
Author Organization [facility] Address [address] [place] [address] Care Team Providers Care Aircraft Servicer Name Role Phone Unknown, Provider Primary Care Provider [phone] Encounter Details Date Type Department Care Team (Late st Contact Info) Description 01/13/2018 Results Only [facility]- [facility] [phone] Elva Madden, [address] [place] [address] Social History Tobacco Use Types [...] Diagnosis Comments PAP TEST- RESULT ONLY Routine 01/13/2018 0:00 EST documented in this encounter Results * PAP TEST- RESULT ONLY (01/13/2018 0:00 EST) Pathology Report: CYTOPATHOLOGY REPORT Reports generated via electronic interface contain original data; however they are lacking the format of the original report. Caution should be taken when reading/interpreti ng unformatted reports. Name: ? MOLLY WEBER ? Accession #: ? [id number] ? : ? 1965 (Age: 52) ??F ?Collect Date: ? 01/13/2018 ? Location: ? [facility] ? Receive Date: ? 01/14/2018 ? Provider: ELVA MADDEN PUNCH CARD OPERATOR Copy to: RAGHU PRINGLE VISITOR SERVICES TECHNICIAN ? Final Report SPECIMEN ADEQUACY ? Satisfactory for Evaluation - transformation zone component present GENERAL CATEGORIZATION ? Negative for Intraepithelial Lesion or Malignancy ?? Last Menstrual Period: 11/1017 Previous Gynecologic Pathology: NATE III: 2007 Treatment History: Cone biopsy: 2007 Specimen/Source: ??Pap Test, Cervix, ThinPrep Imaging System with manual evaluation Document reviewed and electronically signed by: ? Bal Gomez, CT(ASCP) ? Report ??Date: 01/26/2018 09:22 HPV with Pap Test ? Date Ordered: ? 01/24/2018 ? Status: ?? Signed Out ?Date Complete: ? 01/27/2018 ? By: ??System Interface ? Date Reported: ? 01/27/2018 ? Interpretation RESULT: Negative for HPV. No E6 or E7 mRNA is detected from HPV types 16,18,31,33,35, 39,45,51,52,56,58, 59,66, and 68 by dimensional inspector mediated amplification. Comments Document reviewed and electronically signed by: ? System Interface ? Report date: 01/27/2018 By the signature above, the attending physician certifies that he/she has personally conducted a gross and/or microscopic examination of the described specimens and rendered or confirmed the above diagnosis. End of Report [facility] 01/13/2018 01/14/2018 Elva Madden PUNCH CARD OPERATOR PATHOLOGY ORDERABLES [facility] [address] [place] [address] documented in this encounter Visit Diagnoses Not on filedocumented in this encounter Care Teams Aircraft Servicer Relationship Specialty Start Date End Date Unknown, Provider, PCP - General 10/02/15 05/03/18 documented as of this encounter
--- OUTSIDE RECORDS SUMMARY | 2024-08-14 19:57 | XMS_ITS | Encounter Summary ---
Author Organization [facility] Address [address] [place] [address] Care Team Providers Care Radio Commentator Name Role Phone Unknown, Provider Primary Care Provider [phone] Encounter Details Date Type Department Care Team (Late st Contact Info) Description 05/02/2018 Results Only [facility] [phone] Fran Miller MD [address] [place] [address] [place] [address] Social History Tobacco Use Types Packs/Day Years Used Date Smoking Tobacco: Never Assessed Sex and Gender Information Value Date Recorded Sex Assigned at Not on file Gender Identity Not on file Sexual Orientation Not on file documented as of this encounter Plan of Treatment Not on file documented as of this encounter Procedures Procedure Name Priority Date/Time Associated Diagnosis Comments SURGICAL PATHOLOGY Routine 05/02/2018 16 :16 EDT documented in this encounter Results * SURGICAL PATHOLOGY (05/02/2018 16:16 EDT) Pathology Report: SURGICAL PATHOLOGY REPORT Reports generated via electronic interface contain original data; however they are lacking the format of the original report. Caution should be taken when reading/interpret ing unformatted reports. Name: ? MOLLY WEBER ? Accession #: ? [id number] ? : ? 1965 (Age: 53) ??F ? Collect Date: ? 05/02/2018 ? Location: ? [facility] ? Receive Date: ? 05/02/2018 ? Provider: FRAN MILLER MD Copy to: RAGHU PRINGLE VIDEO POKER FLOORMAN ? Final Pathologic Diagnosis: COLON, TRANSVERSE POLYP, POLYPECTOMY: - Fragment of unremarkable colonic mucosa. - No polypoid lesion noted (multiple levels examined). ?? Document reviewed and electronically signed by: SORAIDA SALCIDO MD Report ??Date: 05/03/2018 16:09 By the signature above, the attending physician certifies that he/she has personally conducted a gross and/or microscopic examination of the described specimens and rendered or confirmed the above diagnosis. Specimen(s) Received: Transverse colon polyp Clinical History: Screening Gross Description: ? Received in formalin labelled with proper patient identification (initials H, S) and transverse colon polyp are two gee-pink tissues (averaging 0.3 x 0.2 x 0.1 cm). Submitted in toto in 1. ERIKA Farias (ASCP) 05/02/2018 4:24 PM End of Report [facility] 05/02/2018 16:1 6 EDT 05/02/2018 16:16 EDT Fran Miller MD PATHOLOGY ORDERA DOM [facility] [address] [place] [address] documented in this encounter Visit Diagnoses Not on filedocumented in this encounter Care Teams Radio Commentator Relationship Specialty Start Date End Date Unknown, Provider, PCP - General 10/02/15 05/03/18 documented as of this encounter
--- OUTSIDE RECORDS SUMMARY | 2024-08-14 19:57 | XMS_ITS | Encounter Summary ---
Author Organization [facility] Address [address] [place] [address] Care Team Providers Care Fbi Profiler Name Role Phone Unknown, Provider Primary Care Provider [phone] Encounter Details Date Type Department Care Team (Late st Contact Info) Description 12/24/[address] [facility] [phone] Elva Madden, [address] [place] [address] Social History Tobacco Use Types [...] Diagnosis Comments PAP TEST- RESULT ONLY Routine 12/24/2016 0:00 EST documented in this encounter Results * PAP TEST- RESULT ONLY (12/24/2016 0:00 EST) Pathology Report: CYTOPATHOLOGY REPORT Reports generated via electronic interface contain original data; however they are lacking the format of the original report. Caution should be taken when reading/interpreti ng unformatted reports. Name: ? MOLLY WEBER ? Accession #: ? [id number] : ? 1965 (Age: 51) ??F ?Collect Date: ? 12/24/2016 Location: ? [facility] ? Receive Date: ? 12/25/2016 Provider: ?ELVA MADDEN BANK AND SAVINGS SECURITIES TRADER Copy to: ?RAGHU PRINGLE DRUG ABUSE RESISTANCE EDUCATION OFFICER ? Specimen/Source: ?Pap Test, Cervix, ThinPrep Imaging System with manual evaluation Last Menstrual Period: ? 12/14/2016 Hormonal/Contracep tive Status: ? Intrauterine device: Mirena Previous Gynecologic Pathology: ? NATE III: 2008 Treatment History: ? Cone biopsy: 2008 ? SPECIMEN ADEQUACY ? Satisfactory for Evaluation - transformation zone component present GENERAL CATEGORIZATION ? Negative for Intraepithelial Lesion or Malignancy INTERPRETATION ? Reactive cellular changes associated with inflammation present (includes repair). ? Document reviewed and electronically signed by: ? KASANDRA SANCHES MD ? Report Date: ??12/30/2016 17:18 End of Report [facility] 12/24/2016 12/25/2016 Elva Madden BANK AND SAVINGS SECURITIES TRADER PATHOLOGY ORDERABLES [facility] [address] [place] [address] documented in this encounter Visit Diagnoses Not on filedocumented in this encounter Care Teams Fbi Profiler Relationship Specialty Start Date End Date Unknown, Provider, PCP - General 10/02/15 05/03/18 documented as of this encounter
--- OUTSIDE RECORDS SUMMARY | 2024-08-14 19:57 | XMS_ITS | Clinical Summary ---
Author Organization [facility] Address [address] [place] [address] Care Team Providers Care Senior Master Scheduler Name Role Phone Yisel Harman NP Primary Care Provider [phone] Social History Tobacco Use Types Packs/Day Years Used Date Smoking Tobacco: Never Assessed Interpersonal Safety Answer Date Record ed Physically Hurt Never 06/30/2020 Verbally Threaten Not on file 06/30/2020 Sex and Gender Information Value Date Recorded Sex Assigned at Not on file Gender Identity Not on file Sexual Orientation Not on file Plan of Treatment Health Maintenance Due Date Last Done Comments Hepatitis C Screen 1965 Hepatitis B Vaccine (1 of 3 - 19+ 3-dose series) 04/16 COVID-19 Vaccine (2022- season) 2023 Care Teams Senior Master Scheduler Relationship Specialty Start Date End Date Yisel Harman NP [address] [place], [place] [address] PCP - General 6/6/18
--- OUTSIDE RECORDS SUMMARY | 2024-08-14 19:57 | XMS_ITS | Encounter Summary ---
Author Organization [facility] Address [address] [place] [address] Care Team Providers Care Composition Weatherboard Installer Name Role Phone JanetYisel white REPAIR ARMATURE WINDER HELPER Primary Care Provider [phone] Encounter Details Date Type Department Care Team (Late st Contact Info) Description 11/18/2021 Lab Requisition [facility] Pathology & Laboratory Medicine - [address] [address] Elva Madden, [address] [place] [phone] Encounter for other general examination Social History [...] Date/Time Associated Diagnosis Comments PAP TEST Today 11/17/2021 3:00 EST Encounter for other general examination HPV DNA DETECTION WITH GENOTYPING, PCR Today 11/17/2021 3:00 EST Encounter for other general examination documented in this encounter Results * HUMAN PAPILLOMAVIRUS (HPV) DETECTION-HIGH RISK TYPES (11/17/2021 3:00 EST) HPV other High Risk types, PCR Negative Negative 11/27/2021 7:17 [facility] Comment:No E6 or E7 mRNA is detected from HPV types 16,18,31,33,35,39,45,51,52,56,58,59,66, and 68 by antique dealer mediated amplification. Papanicolaou smear specimen (specimen) CERVIX UTERI STRUCTURE / Unknown 11/17/2021 3:00 EST 11/25/2021 14:58 EST Elva Pottergood COLLECTION AGENT MICROBIOLOGY - GENER AL ORDERABLES [facility] [address] [place] [address] * PAP TEST (11/17/2021 3:00 EST) Specimens A. Cervix and/or Endocervix , ThinPrep Imaging System with Manual Evaluation 11/27/2021 7:17 [facility] Specimen Adequacy Satisfactory for Evaluation - transformation zone component present Scant due to excessive blood 11/27/2021 7:17 [facility] General Categorization Negative for intraepithelial lesion or malignancy 11/27/2021 7:17 [facility] Attestation . 11/27/2021 7:17 [facility] at 0717 Clinical History SEE BELOW 11/27/20 7:17 [facility] HPV The result for the Human Papillomavirus (HPV) Detection-High Risk Types is Negative. No E6 or E7 mRNA is detected from HPV types 16,18,31,33,35,39 ,45,51,52,56,58,5 9,66, and 68 by antique dealer mediated amplification.Tammy ting was performed on specimen [id number] and was resulted on 11/27/2021 0713 EST by TONI, LAB INSTRUMENT RESULTS IN 11/27/2021 7:17 [facility] Performing Lab [facility] 11/27/2021 7:17 [facility] Scanned Images 11/27/2021 7:17 EST [facility] Papanicolaou smear specimen (specimen) CERVIX UTERI STRUCTURE / Unknown 11/17/2021 3:00 EST 11/18/2021 13:34 EST Elva Fidel Chano COLLECTION AGENT PATHOLOGY ORDERABLES [facility] [address] [place] [address] documented in this encounter Visit Diagnoses Diagnosis Encounter for other general examination documented in this encounter Care Teams Composition Weatherboard Installer Relationship Specialty Start Date End Date Yisel Harman NP [address] [place] [address] PCP - General 05/04/18 documented as of this encounter
--- OUTSIDE RECORDS SUMMARY | 2024-08-14 19:57 | XMS_ITS | Encounter Summary ---
Author Organization [facility] Address [address] [place] [address] Care Team Providers Care Wheat Inspector Name Role Phone Unknown, Provider Primary Care Provider [phone] Encounter Details Date Type Department Care Team (Latest Contact Info) Description 05/02/2018 11:28 EDT - 05/02/2018 23:59 EDT Hospital Encounter [address] [address] Unknown, Provider, Discharge Disposition: Home or Self Care Social History Tobacco Use Types Packs/Day Years Used Date Smoking Tobacco: Never Assessed Sex and Gender Information Value Date Recorded Sex Assigned at Not on file Gender Identity Not on file Sexual Orientation Not on file documented as of this encounter Discharge Disposition Disposition Code Departure Means Destination Home or Self [facility] documented in this encounter Plan of Treatment Not on file documented as of this encounter Visit Diagnoses Not on filedocumented in this encounter Care Teams Wheat Inspector Relationship Specialty Start Date End Date Unknown, Provider, PCP - General 10/02/15 05/03/18 documented as of this encounter
--- OUTSIDE RECORDS SUMMARY | 2024-08-14 19:57 | XMS_ITS | Encounter Summary ---
Author Organization [facility] Address [address] [place] [address] Care Team Providers Care Traveling Phlebotomist Name Role Phone Janetcindy Yisel CRIME SCENE TECHNICIAN Primary Care Provider [phone] Encounter Details Date Type Department Care Team (Late st Contact Info) Description 01/23/2020 Lab Requisition [facility] Pathology & Laboratory Medicine - [address] [address] Elva Madden, [address] [place] [phone] Encounter for other general examination Social History [...] Date/Time Associated Diagnosis Comments PAP TEST Today 01/22/2020 8:30 EST Encounter for other general examination HPV DNA DETECTION WITH GENOTYPING, PCR Today 01/22/2020 8:30 EST Encounter for other general examination documented in this encounter Results * HUMAN PAPILLOMAVIRUS (HPV) DETECTION-HIGH RISK TYPES (01/22/2020 8:30 EST) HPV other High Risk types, PCR Negative Negative 02/01/2020 15:09 EST [facility] Comment:No E6 or E7 mRNA is detected from HPV types 16,18,31,33,35,39,45,51,52,56,58,59,66, and 68 by transportation maintenance operator mediated amplification. Papanicolaou smear specimen (specimen) CERVIX UTERI STRUCTURE / Unknown 01/22/2020 8:30 EST 01/31/2020 12:14 EST Elva Madden IN [employer]BER MICROBIOLOGY - GENER AL ORDERABLES [facility] [address] [place] [address] * PAP TEST (01/22/2020 8:30 EST) Specimens A. Cervix and/or Endocervix, , ThinPrep Imaging System with Manual Evaluation 02/01/2020 15:09 [facility] Specimen Adequacy Satisfactory for Evaluation - transformation zone component present 02/01/2020 15:09 [facility] General Categorization Negative for intraepithelial lesion or malignancy 02/01/2020 15:09 [facility] Attestation By the signature below, the attending physician certifies that they have personally conducted a gross and/or microscopic examination of the described specimens and rendered or confirmed the above diagnosis. 02/01/2020 15:09 [facility] at 1509 Clinical History SEE ORDER COMMENTS 02/01/2020 15:09 [facility] HPV The result for the Human Papillomavirus (HPV) Detection-High Risk Types is Negative. No E6 or E7 mRNA is detected from HPV types 16,18,31,33,35,39 ,45,51,52,56,58,5 9,66, and 68 by transportation maintenance operator mediated amplification.Tammy ting was performed on specimen [id number] and was resulted on 02/01/2020 1505 EST by TONI, LAB INSTRUMENT RESULTS IN 02/01/2020 15:09 [facility] Scanned Images 02/01/2020 15:09 [facility] Papanicolaou smear specimen (specimen) CERVIX UTERI STRUCTURE / Unknown 01/22/2020 8:30 EST 01/23/2020 9:55 EST Elva Madden IN [employer] PATHOLOGY ORDERABLES Performing Organization Address City/State/[facility] Co de Phone Number [facility] [address] [place] [address] documented in this encounter Visit Diagnoses Diagnosis Encounter for other general examination documented in this encounter Care Teams Traveling Phlebotomist Relationship Specialty Start Date End Date Yisel [place] [address] [address] [place] [address] PCP - General 05/04/18 documented as of this encounter
--- OUTSIDE RECORDS SUMMARY | 2024-08-14 19:57 | XMS_ITS | Encounter Summary ---
Author Organization [facility] Address [address] [place] [address] Care Team Providers Care Safety Teacher Name Role Phone JanetjuaquinorvilleYisel FINANCIAL PROJECT MANAGER Primary Care Provider [phone] Encounter Details Date Type Department Care Team (Late st Contact Info) Description 04/13/2023 Lab Requisition [facility] Pathology & Laboratory Medicine - [address] [address] Outr Resulting Lab, Provider Social History Tobacco [...] Date/Time Associated Diagnosis Comments T3 FREE Routine 04/12/2023 16:30 EDT documented in this encounter Results * T3 FREE (04/12/2023 16:30 EDT) T3, Free 3.7 2.8 - 5.3 pg/mL 04/13/2023 19:19 EDT [facility] Blood VENOUS BLOOD / Unknown 04/12/2023 16:30 EDT 04/13/2023 17:42 EDT Provider Outr Resulting Lab CHEMISTRY & BLOOD GAS ORDERABLES [facility] [address] [place] [address] documented in this encounter Visit Diagnoses Not on filedocumented in this encounter Care Teams Safety Teacher Relationship Specialty Start Date End Date Yisel Harman NP [address] [place] [address] PCP - General 05/04/18 documented as of this encounter
--- OUTSIDE RECORDS SUMMARY | 2024-08-14 19:58 | XMS_ITS | Encounter Summary ---
Author Organization [facility] [place] [address] Care Team Providers Care Extras Casting Director Name Role Phone Priscilla Salvador YEFRI Primary Care Provider [phone] Encounter Details Date Type Department Care Team (Late st Contact Info) Description 01/02/2014 Orders Only [place] [address] Bin Mark MD [facility] [place] [address] Hyperthyroidism Social History Tobacco Use Types Packs/Day Years Used Date Smoking Tobacco: Every Day Cigarettes 1 20 Sex and Gender Information Value Date Recorded Sex Assigned at Not on file Gender Identity Not on file Sexual Orientation Not on file documented as of this encounter Plan of Treatment Not on file documented as of this encounter Results * (ABNORMAL) T3 (01/23/2014 4:44 PM EST) T3 Total 195(EXTERNA L/ABN) Blood specimen (specimen) Duyen Garcia MD CHEMISTRY ORDERAB LES * (ABNORMAL) T4, free (01/23/2014 4:44 PM EST) Free T4 1.70(INSIDE SALES RECRUITER AL/ABN) Blood specimen (specimen) Duyen Garcia MD CHEMISTRY ORDERAB LES documented in this encounter Visit Diagnoses Diagnosis Hyperthyroidism Thyrotoxicosis without mention of goiter or other cause, without mention of thyrotoxic crisis or storm documented in this encounter Care Teams Extras Casting Director Relationship Specialty Start Date End Date Priscilla Salvador, YEFRI [facility] [address] [place] [address] PCP - General 10/21/10 documented as of this encounter
--- OUTSIDE RECORDS SUMMARY | 2024-08-14 19:58 | XMS_ITS | Encounter Summary ---
Author Organization [facility] Address [address] [place] [address] Care Team Providers Care Separator Operator Name Role Phone Unavailable Primary Care Provider Unavailabl e Encounter Details Date Type Department Care Team (Late st Contact Info) Description 11/02/2013 Results Only [facility] Laboratory Services - [facility] ([facility] [address] [place], [place] [address] Elva Madden, [facility] [address] [place] [address] [place] [phone] Social History Tobacco Use Types Packs/Day Years [...] Diagnosis Comments PAP TEST- RESULT ONLY Routine 11/02/2013 0:00 EST documented in this encounter Results * PAP TEST- RESULT ONLY (11/02/2013 0:00 EST) Pathology Report: CYTOPATHOLOGY REPORT Reports generated via electronic interface contain original data; however they are lacking the format of the original report. Caution should be taken when reading/interpreti ng unformatted reports. Name: ? MOLLY WEBER ? Accession #: ? [id number] : ? 1965 (Age: 48) ??F ?Collect Date: ? 11/02/2013 Location: ? [facility] ? Receive Date: ? 11/03/2013 Provider: ?ELVA MADDEN HUMAN RESOURCES RECRUITER Copy to: ?SOHAIL WATSON PLATE SHOP HELPER ? Specimen/Source: ?Pap Test, Cervix/Endocervix, ThinPrep Imaging System with manual evaluation Last Menstrual Period: ? 10/16/2013 Previous Gynecologic Pathology: ? NATE III: 2007 Treatment History: ? Cone biopsy ? SPECIMEN ADEQUACY ? Satisfactory for Evaluation - transformation zone component present GENERAL CATEGORIZATION ? Negative for Intraepithelial Lesion or Malignancy ? Document reviewed and electronically signed by: ? LAILA Ladd(ASCP) ? Report Date: ??11/08/2013 09:08 End of Report [facility] P[facility] 11/02/2013 11/03/2013 Elva Madden HUMAN RESOURCES RECRUITER PATHOLOGY ORDERABLES [facility] P[facility] [address] [place] [address] documented in this encounter Visit Diagnoses Not on filedocumented in this encounter
--- OUTSIDE RECORDS SUMMARY | 2024-08-14 19:58 | XMS_ITS | Encounter Summary ---
Author Organization [facility] [place] [place] [address] Care Team Providers Care Director Federal Name Role Phone Priscilla Salvador APRN Primary Care Provider [phone] Encounter Details Date Type Department Care Team (Late st Contact Info) Description 02/01/2014 Telephone [place] [phone] Bin Mark MD [facility] [place] [address] Social History Tobacco Use Types Packs/Day Years Used Date Smoking Tobacco: Every Day Cigarettes 1 20 Sex and Gender Information Value Date Recorded Sex Assigned at Not on file Gender Identity Not on file Sexual Orientation Not on file documented as of this encounter Miscellaneous Notes * Telephone Encounter - Bin Mark MD - 02/01/2014 1:33 PM EST Spoke to Ms Mercado. Informed her that her thyroid levels are improving but still very slightly high so will still continue methimazole 30 mg daily and recheck thyroid labs in 2 weeks and change doseaccordingly. documented in this encounter Plan of Treatment Not on file documented as of this encounter Visit Diagnoses Not on filedocumented in this encounter Care Teams Director Federal Relationship Specialty Start Date End Date Priscilla Salvador APRN [facility] [address] [place] [address] PCP - General 10/21/10 documented as of this encounter
--- OUTSIDE RECORDS SUMMARY | 2024-08-14 19:58 | XMS_ITS | Encounter Summary ---
Author Organization [facility] [place] [address] Care Team Providers Care Fingerprint Expert Name Role Phone Priscilla Salvador APRN Primary Care Provider [phone] Encounter Details Date Type Department Care Team (Latest Contact Info) Description 06/06/2014 External Results [place] [address] Bin Mark MD [facility] [place] [address] Hyperthyroidism (Primary Dx) Social History Tobacco Use Types Packs/Day Years [...] Name Priority Date/Time Associated Diagnosis Comments T3 TOTAL STAT 05/29/2014 Hyperthyroidism TSH Routine 05/29/2014 Hyperthyroidism T4, FREE Routine 05/29/2014 Hyperthyroidism documented in this encounter Results * (ABNORMAL) T3 (05/29/2014) T3 Total 103(Externa l Lab) Blood specimen (specimen) 05/29/2014 Cameron Goins MD CHEMISTRY ORDERABLES * (ABNORMAL) TSH (05/29/2014) Thyroid Stimulating Hormone 0.34(EXTER NAL/ABN) Blood specimen (specimen) 05/29/2014 Cameron Goins MD CHEMISTRY ORDERABLES * (ABNORMAL) T4, free (05/29/2014) Free T4 1.01(Edger Machine Setter al Lab) Blood specimen (specimen) 05/29/2014 Cameron Goins MD CHEMISTRY ORDERABLES documented in this encounter Visit Diagnoses Diagnosis Hyperthyroidism- Primary Thyrotoxicosis without mention of goiter or other cause, without mention of thyrotoxic crisis or storm documented in this encounter Care Teams Fingerprint Expert Relationship Specialty Start Date End Date Priscilla Salvador APRN [facility] [address] [place] [address] PCP - General 10/21/10 documented as of this encounter
--- OUTSIDE RECORDS SUMMARY | 2024-08-14 19:58 | XMS_ITS | Encounter Summary ---
Author Organization [facility] [place] [address] Care Team Providers Care Patient Care Associate Name Role Phone Priscilla Salvador APRN Primary Care Provider [phone] Reason for Visit * Reason Onset Date Comments Medication Refill 04/03/2015 Encounter Details Date Type Department Care Team (Late st Contact Info) Description 04/03/2015 Refill [place] [address] Bin Mark MD [facility] [place] [address] Social History Tobacco Use Types Packs/Day Years [...] on filedocumented in this encounter Care Teams Patient Care Associate Relationship Specialty Start Date End Date Priscilla Salvador APRN [facility] [address] [place] [address] PCP - General 10/21/10 documented as of this encounter
--- OUTSIDE RECORDS SUMMARY | 2024-08-14 19:58 | XMS_ITS | Encounter Summary ---
Author Organization [facility] Address [address] [place] [address] Care Team Providers Care Litigation Legal Secretary Name Role Phone Unavailable Primary Care Provider Unavailabl e Encounter Details Date Type Department Care Team (Late st Contact Info) Description 07/23/2005 Results Only [facility] - Maple conversion [address] [place] [address] Hilario Tenorio MD [address] [place] [address] Social History Tobacco Use Types Packs/Day Years Used Date Smoking Tobacco: Never Assessed Sex and Gender Information Value Date Recorded Sex Assigned at Not on file Gender Identity Not on file Sexual Orientation Not on file documented as of this encounter Plan of Treatment Not on file documented as of this encounter Procedures Procedure Name Priority Date/Time Associated Diagnosis Comments CYTOGENETICS Routine 07/23/2005 0:00 EDT documented in this encounter Results * CYTOGENETICS (07/23/2005 0:00 EDT) Pathology Report: CYTOGENETICS REPORT Reports generated via electronic interface contain original data; however they are lacking the format of the original report. Caution should be taken when reading/interpreti ng unformatted reports. Name: ? MOLLY WEBER ? Accession #: ? [id number] : ? 1965 (Age: 40) ??F ?Collect Date: ? 07/23/2005 Location: ? [facility] ? Receive Date: ? 07/24/2005 Provider: ? HILARIO TENORIO MD Copy to: ?[facility] CAESAR SWENSON MD ? INTERPRETATION: ? Normal female karyotype ? Document reviewed and electronically signed by: ? CAESAR SWENSON MD ? Report Date: ??08/07/2005 17:40 CLINICAL HISTORY: ? Advanced maternal age ? SPECIMEN: ? Amniotic Fluid ?? TEST PERFORMED: ? G-banded Karyotype ?? REPORT: ? No. Cells Counted: ??20 No. Colonies Counted: 5 No. Cells Analyzed: 11 No. Cells Karyotyped: 5 Band Resolution: 600 KARYOTYPE: ? 46,XX ?? COMMENT: ? This analysis excludes mosaicism >10% at a 90% confidence limit. ??Small chromosome anomalies may not be detected using the standard methods. ??Please send us follow-up information after delivery for confirmation. ?? End of Report PAU[facility]E PERE[facility] 07/23/2005 07/24/2005 10: 12 EDT Hilario Tenorio MD PATHOLOGY STEPHANI DEMARCO [facility] [address] [place] [address] documented in this encounter Visit Diagnoses Not on filedocumented in this encounter
--- OUTSIDE RECORDS SUMMARY | 2024-08-14 19:58 | XMS_ITS | Encounter Summary ---
Author Organization [facility] Address [address] [place] [address] Care Team Providers Care Monorail Charger Operator Name Role Phone Unavailable Primary Care Provider Unavailabl e Encounter Details Date Type Department Care Team (Late st Contact Info) Description 02/05/2009 Before PRISM Converted Visit (Maple) [facility] - Maple conversion [address] [place] [address] Elva Madden, [facility] [address] [place] [address] [place] [phone] Social History Tobacco Use Types Packs/Day Years Used Date Smoking Tobacco: Never Assessed Sex and Gender Information Value Date Recorded Sex Assigned at Not on file Gender Identity Not on file Sexual Orientation Not on file documented as of this encounter Plan of Treatment Not on file documented as of this encounter Procedures Procedure Name Priority Date/Time Associated Diagnosis Comments CYTOPATHOLOGY Routine 02/05/2009 0:00 EDT documented in this encounter Results * CYTOPATHOLOGY (02/05/2009 0:00 EDT) Pathology Report: CYTOPATHOLOGY REPORT ? Reports generated via electronic interface contain original data; ? however they are lacking the format of the original report. ? Caution should be taken when reading/interpreti ng unformatted reports. ? Name: ? MOLLY WEBER ? Accession #: ? [id number] ? : ? 1965 (Age: 43) ??F ?Collect Date: ? 02/05/2009 ? Location: ? [facility] ? Receive Date: ? 02/06/2009 ? Provider: ?ELVA EVA WASTE OIL PUMPER ? Copy to: ? Specimen/Source: ?Pap Test, Cervix/Endocervix, ThinPrep Imaging System ? with manual evaluation ? Last Menstrual Period: ? Hormonal/Contracep tive Status: ? Tubal ligation ? Previous Gynecologic Pathology: ? HSIL: 8/07, 8/21/08 ? HPV: 8/07 ? NATE III ? Treatment History: ? Cervical biopsy: 09/04 X2, 2 bx's for NATE 111, 3 bx's no dysplasia ? LEEP: 12/06 ? Cone biopsy: 12/06 negative for dysplasia, 09/05 margins negative for dysplasia ?? Miscellaneous treatment: ECC no dysplasia ? Other: ? HPVA - HPV testing requested if ASC-US on the current ThinPrep Pap test. ? SPECIMEN ADEQUACY ? Satisfactory for Evaluation ? - transformation zone component present ? GENERAL CATEGORIZATION ? Negative for Intraepithelial Lesion or Malignancy ? Document reviewed and electronically signed by: ? Suzi Zuñiga, CT(ASCP)(IAC) ? Report Date: ??02/08/2009 14:16 ? End of Report ? PAULETTE PEREZ 02/05/2009 02/06/2009 Elva Madden WASTE OIL PUMPER PATHOLOGY ORDERABLES [facility] [address] [place] [address] documented in this encounter Visit Diagnoses Not on filedocumented in this encounter
--- OUTSIDE RECORDS SUMMARY | 2024-08-14 19:58 | XMS_ITS | Encounter Summary ---
Author Organization [facility] [place] [address] Care Team Providers Care Bridge Engineer Name Role Phone Priscilla Salvador ASSOCIATE STORE DIRECTOR Primary Care Provider [phone] Encounter Details Date Type Department Care Team (Late st Contact Info) Description 02/01/2014 Orders [place] [address] Bin Mark MD [facility] [place] [address] Hyperthyroidism (Primary Dx) Social History Tobacco Use Types Packs/Day Years Used Date Smoking Tobacco: Every Day Cigarettes 1 20 Sex and Gender Information Value Date Recorded Sex Assigned at Not on file Gender Identity Not on file Sexual Orientation Not on file documented as of this encounter Plan of Treatment Not on file documented as of this encounter Results * (ABNORMAL) T3 (05/29/2014) T3 Total 79(External Lab) Blood specimen (specimen) 05/29/2014 Duyen Garcia MD CHEMISTRY ORDERAB LES * (ABNORMAL) T4, free (03/08/2014 7:37 AM EDT) Free T4 0.59(MULE DRIVER AL/ABN) Blood specimen (specimen) Duyen Garcia MD CHEMISTRY ORDERAB LES documented in this encounter Visit Diagnoses Diagnosis Hyperthyroidism- Primary Thyrotoxicosis without mention of goiter or other cause, without mention of thyrotoxic crisis or storm Hyperthyroidism Thyrotoxicosis without mention of goiter or other cause, without mention of thyrotoxic crisis or storm documented in this encounter Care Teams Bridge Engineer Relationship Specialty Start Date End Date Priscilla Salvador APRN [facility] [address] [place] [address] PCP - General 10/21/10 documented as of this encounter
--- OUTSIDE RECORDS SUMMARY | 2024-08-14 19:58 | XMS_ITS | Encounter Summary ---
Author Organization [facility] Address [address] [place] [address] Care Team Providers Care Filter Tender Jelly Name Role Phone Unavailable Primary Care Provider Unavailabl e Encounter Details Date Type Department Care Team (Late st Contact Info) Description 12/21/2014 Results Only [facility] Laboratory Services - [facility] [place] [place] [address] [place], [place] [address] Elva Madden, [facility] [address] [place] [address] [place] [address] Social History Tobacco Use Types [...] Diagnosis Comments PAP TEST- RESULT ONLY Routine 12/21/2014 0:00 EST documented in this encounter Results * PAP TEST- RESULT ONLY (12/21/2014 0:00 EST) Pathology Report: CYTOPATHOLOGY REPORT Reports generated via electronic interface contain original data; however they are lacking the format of the original report. Caution should be taken when reading/interpreti ng unformatted reports. Name: ? MOLLY WEBER ? Accession #: ? [id number] : ? 1965 (Age: 49) ??F ?Collect Date: ? 12/21/2014 Location: ? [facility] ? Receive Date: ? 12/24/2014 Provider: ?ELVA MADDEN EDGE BANDING OFF BEARER Copy to: ?SOHAIL WATSON ZINC PLATE CUTTER ? Specimen/Source: ?Pap Test, Cervix/Endocervix, ThinPrep Imaging System with manual evaluation Last Menstrual Period: ? 12/03/14 Previous Gynecologic Pathology: ? NATE III: 2008 Treatment History: ? Cone biopsy: 2007 ? SPECIMEN ADEQUACY ? Satisfactory for Evaluation - transformation zone component present GENERAL CATEGORIZATION ? Negative for Intraepithelial Lesion or Malignancy ? Document reviewed and electronically signed by: ? LAILA Rock(ASCP) ? Report Date: ??12/31/2014 15:26 End of Report [facility] 12/21/2014 12/24/2014 Elva Madden EDGE BANDING OFF BEARER PATHOLOGY ORDERABLES [facility] [address] [place] [address] documented in this encounter Visit Diagnoses Not on filedocumented in this encounter
--- OUTSIDE RECORDS SUMMARY | 2024-08-14 19:58 | XMS_ITS | Encounter Summary ---
Author Organization [facility] Address [address] [place] [address] Care Team Providers Care Nitroglycerin Neutralizer Name Role Phone Unavailable Primary Care Provider Unavailabl e Encounter Details Date Type Department Care Team (Late st Contact Info) Description 07/19/2008 Before PRISM Converted Visit (Maple) [facility] - Maple conversion [address] [place] [address] Elva Madden, [facility] [address] [place] [address] [place] [phone] Social History Tobacco Use Types Packs/Day Years Used Date Smoking Tobacco: Never Assessed Sex and Gender Information Value Date Recorded Sex Assigned at Not on file Gender Identity Not on file Sexual Orientation Not on file documented as of this encounter Plan of Treatment Not on file documented as of this encounter Procedures Procedure Name Priority Date/Time Associated Diagnosis Comments CYTOPATHOLOGY Routine 07/19/2008 0:00 EDT documented in this encounter Results * CYTOPATHOLOGY (07/19/2008 0:00 EDT) Pathology Report: CYTOPATHOLOGY REPORT ? Reports generated via electronic interface contain original data; ? however they are lacking the format of the original report. ? Caution should be taken when reading/interpreti ng unformatted reports. ? Name: ? MOLLY WEBER ? Accession #: ? [id number] ? : ? 1965 (Age: 43) ??F ?Collect Date: ? 07/19/2008 ? Location: ? [facility] ? Receive Date: ? 07/23/2008 ? Provider: ?ELVA EVA WASHER OFF ? Copy to: ? Specimen/Source: ?ThinPrep Pap Test, Cervix/Endocervix, processed on [employer] ThinPrep Imaging System, with manual evaluation ? Last Menstrual Period: ? 8/17/08 ? Previous Gynecologic Pathology: ? HSIL: 8/07 ? HPV: 8/07 ? NATE II ? NATE III ? Treatment History: ? Cervical biopsy: X 2 10/07 ? LEEP: 1/08 ? Cone biopsy: 1/08 - neg for dysplasia ? Other: ? HPVA - HPV testing requested if ASC-US on the current ThinPrep Pap test. ? SPECIMEN ADEQUACY ? Satisfactory for Evaluation ? - transformation zone component present ? GENERAL CATEGORIZATION ? Epithelial Cell Abnormality ? INTERPRETATION ? Squamous Cell Abnormality - High grade squamous intraepithelial lesion, ? with features ? suspicious for invasion (HSIL-I). ? EDUCATIONAL NOTES/RECOMMENDATI ONS ? [facility] recommends following the 2006 Consensus Guidelines for the Management of Women with Abnormal Cervical Cancer Screening Tests (JLGTD, ? 2007;11(4):201-222 ). ??Consensus guidelines are available online at ? www.ASCCP.org. ? Document reviewed and electronically signed by: ? Maria Luz C Vincent MD ? Report Date: ??07/26/2008 17:44 ? End of Report ? [facility] PERE[facility] 07/19/2008 07/23/2008 Elva Madden WASHER OFF PATHOLOGY ORDERABLES [facility] [address] [place] [address] documented in this encounter Visit Diagnoses Not on filedocumented in this encounter
--- OUTSIDE RECORDS SUMMARY | 2024-08-14 19:58 | XMS_ITS | Encounter Summary ---
Author Organization [facility] Address [address] [place] [address] Care Team Providers Care Brake Lining Maker Name Role Phone Unavailable Primary Care Provider Unavailabl e Encounter Details Date Type Department Care Team (Late st Contact Info) Description 09/19/2008 Before PRISM Converted Visit (Maple) [facility] - Maple conversion [address] [place] [address] Elizabeth Jarvis MD [address] [place] [address] [place] [address] Social History Tobacco Use Types Packs/Day Years Used Date Smoking Tobacco: Never Assessed Sex and Gender Information Value Date Recorded Sex Assigned at Not on file Gender Identity Not on file Sexual Orientation Not on file documented as of this encounter Plan of Treatment Not on file documented as of this encounter Procedures Procedure Name Priority Date/Time Associated Diagnosis Comments SURGICAL PATHOLOGY Routine 09/19/2008 0:00 EDT documented in this encounter Results * SURGICAL PATHOLOGY (09/19/2008 0:00 EDT) Pathology Report: SURGICAL PATHOLOGY REPORT ? Reports generated via electronic interface contain original data; ? however they are lacking the format of the original report. ? Caution should be taken when reading/interpreting unformatted reports. ? Name: ? WEBER, MOLLY ? Accession #: ? [id number] ? : ? 1965 (Age: 43) ??F ? Collect Date: ? 09/19/2008 ? Location: ? [facility] ? Receive Date: ? 09/19/2008 ? Provider: ELIZABETH JARVIS MD ? Copy to: SOHAIL W BESCH BUSINESS LINE CONTROLLER ? Final Pathologic Diagnosis: ? Cervix, cone biopsy: ? 1. 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 ??See comment. ? - Endocervical and ectocervical resection margins negative for dysplasia. ? 2. ?? Chronic cervicitis and squamous metaplasia. ? Comment: ? Focal area of complex growth pattern, which most likely represents ? endocervical glandular extension is focally present. No definitive invasion is ?? identified. Precision Farming Specialist sections were reviewed in the intradepartmental ? consultation conference. ? Document reviewed and electronically signed by: ? Ralph Burciaga MD ? Report ??Date: 09/24/2008 15:57 ? By the signature above, the attending physician certifies that he/she has ? personally conducted a gross and/or microscopic examination of the described ? specimens and rendered or confirmed the above diagnosis. ? Specimen(s) Received: ? Cone bx ??tag @ 12:00 and anterior lip ? Clinical History: ? NATE III ? Gross Description: ? Received in formalin labelled Weber and cone biopsy tag at 12 o'clock is a 1.5 cm from 12 - 3 o'clock, 2.0 cm 3 - 9 o'clock clinical soft tissue ? excised to a depth of 1.2 cm. ??There is a stitch at one aspect indicating 12 ? o'clock. ??The ectocervix is gee-white and smooth to wrinkled with an eccentric ?? 0.4 cm circular probe patent os. ??The ectocervical margin is inked black and ? endocervical blue. ??Also received in the container is a 1.4 x 0.9 x 0.3 cm ? additional irregular portion of soft tissue partially surfaced by gee-white ? ectocervix. ??The orientation relevant to the previous specimen cannot be ? determined. ??The specimen has its margins inked black, is sectioned, and is ? entirely submitted as (A10) and (A11). ??The specimen is sectioned in a clockwise fashion and is entirely submitted as follows: ? BLOCK CROOK ? A1,A2 ?12 o'clock to 3 o'clock ? A3,A4 ?12 - 6 o'clock ? A5-A7 ?6 - 9 o'clock ? A8,A9 ?9 o'clock to 12 o'clock ? A10,A11 ? Additional tissue ? (L. Montes)/cjh ? End of Report ? PAULETTE PEREZ 09/19/2008 09/19/2008 17: 27 EDT Elizabeth Jarvis MD PATHOLOGY ORDERABLES [facility] [address] [place] [address] documented in this encounter Visit Diagnoses Not on filedocumented in this encounter
--- OUTSIDE RECORDS SUMMARY | 2024-08-14 19:58 | XMS_ITS | Encounter Summary ---
Author Organization [facility] [place] [address] Care Team Providers Care Sales Solutions Representative Name Role Phone Priscilla Salvador APRN Primary Care Provider +1- [phone] Encounter Details Date Type Department Care Team (Late st Contact Info) Description 04/27/2015 [place] [address] Bin Mark MD [facility] [place] [address] Social History Tobacco Use Types Packs/Day Years [...] on filedocumented in this encounter Care Teams Sales Solutions Representative Relationship Specialty Start Date End Date Priscilla Salvador APRN [facility] [address] [place] [place] [address] PCP - General 10/21/10 documented as of this encounter
--- OUTSIDE RECORDS SUMMARY | 2024-08-14 19:58 | XMS_ITS | Encounter Summary ---
Author Organization [facility] Address [address] [place] [address] Care Team Providers Care Naturalization Examiner Name Role Phone Unavailable Primary Care Provider Unavailabl e Encounter Details Date Type Department Care Team (Late st Contact Info) Description 10/20/2010 Results Only [facility] Laboratory Services - [facility] ([facility] [place] [address] [place], [place] [address] Elva Madden, [facility] [address] [facility] [facility] [place] [phone] Social History Tobacco Use Types Packs/Day Years Used Date Smoking Tobacco: Never Assessed Sex and Gender Information Value Date Recorded Sex Assigned at Not on file Gender Identity Not on file Sexual Orientation Not on file documented as of this encounter Plan of Treatment Not on file documented as of this encounter Procedures Procedure Name Priority Date/Time Associated Diagnosis Comments CYTOPATHOLOGY Routine 10/20/2010 0:00 EST documented in this encounter Results * CYTOPATHOLOGY (10/20/2010 0:00 EST) Pathology Report: CYTOPATHOLOGY REPORT ? Reports generated via electronic interface contain original data; ? however they are lacking the format of the original report. ? Caution should be taken when reading/interpreti ng unformatted reports. ? Name: ? MOLLY WEBER ? Accession #: ? [id number] ? : ? 1965 (Age: 45) ??F ?Collect Date: ? 10/20/2010 ? Location: ? [facility] ? Receive Date: ? 10/21/2010 ? Provider: ?ELVA EVA PRODUCTION BORING MACHINE OPERATOR ? Copy to: ? Specimen/Source: ?Pap Test, Cervix/Endocervix, ThinPrep Imaging System ? with manual evaluation ? Last Menstrual Period: ? 11/4/10 ? Hormonal/Contracep tive Status: ? Tubal ligation ? Previous Gynecologic Pathology: ? HSIL: 8/07, 8/08 ? HPV: 8/07 ? NATE III: 10/08 ? Other: ? Additional clinical information: 4/09, 3/10 WNL ? SPECIMEN ADEQUACY ? Satisfactory for Evaluation ? - transformation zone component present ? GENERAL CATEGORIZATION ? Negative for Intraepithelial Lesion or Malignancy ? INTERPRETATION ? Fungal organisms present morphologically consistent with Hermelinda species. ? Document reviewed and electronically signed by: ? Lynan Diaz, CT(ASCP) ? Report Date: ??10/27/2010 15:27 ? End of Report ? PAULETTE PEREZ 10/20/2010 10/21/2010 Elva Madden PRODUCTION BORING MACHINE OPERATOR PATHOLOGY ORDERABLES [facility] [address] [place] [address] documented in this encounter Visit Diagnoses Not on filedocumented in this encounter
--- OUTSIDE RECORDS SUMMARY | 2024-08-14 19:58 | XMS_ITS | Encounter Summary ---
Author Organization [facility] [place] [address] Care Team Providers Care Seater Grinder Name Role Phone Priscilla Salvador YEFRI Primary Care Provider +1- [phone] Encounter Details Date Type Department Care Team (Late st Contact Info) Description 2014 External [place] [address] Bin Mark MD [facility] [place] [address] Hyperthyroidism Social History Tobacco Use Types Packs/Day [...] Date/Time Associated Diagnosis Comments T3 TOTAL STAT 04/11/2014 7:32 AM EDT Hyperthyroidism T4, FREE Routine 04/11/2014 7:32 AM EDT Hyperthyroidism documented in this encounter Results * (ABNORMAL) T4, free (04/11/2014 7:32 AM EDT) Free T4 0.78(Card Grader al Lab) Blood specimen (specimen) Cameron Goins MD CHEMISTRY ORDERABLES * (ABNORMAL) T3 (04/11/2014 7:32 AM EDT) T3 Total 73(External Lab) Blood specimen (specimen) Cameron Goins MD CHEMISTRY ORDERABLES documented in this encounter Visit Diagnoses Diagnosis Hyperthyroidism Thyrotoxicosis without mention of goiter or other cause, without mention of thyrotoxic crisis or storm documented in this encounter Care Teams Seater Grinder Relationship Specialty Start Date End Date Priscilla Salvador APRN [facility] [address] [place] [address] PCP - General 10/21/10 documented as of this encounter
--- OUTSIDE RECORDS SUMMARY | 2024-08-14 19:58 | XMS_ITS | Encounter Summary ---
Author Organization [facility] Address [address] [place] [address] Care Team Providers Care Acidizer Name Role Phone Unavailable Primary Care Provider Unavailabl e Encounter Details Date Type Department Care Team (Late st Contact Info) Description 07/25/2007 Results Only [facility] - Maple conversion [address] [place] [address] Elva Madden, [facility] [address] [place] [address] [place] [address] Social History Tobacco Use Types Packs/Day Years Used Date Smoking Tobacco: Never Assessed Sex and Gender Information Value Date Recorded Sex Assigned at Not on file Gender Identity Not on file Sexual Orientation Not on file documented as of this encounter Plan of Treatment Not on file documented as of this encounter Procedures Procedure Name Priority Date/Time Associated Diagnosis Comments HPV DETECTION, HIGH RISK TYPES Routine 07/25/2007 15:10 EDT CYTOPATHOLOGY Routine 07/25/2007 0:00 EDT documented in this encounter Results * HUMAN PAPILLOMA VIRUS DNA TEST (07/25/2007 15:10 EDT) Specimen Description Cervix, ThinPrep vial [facility] Result Positive for one or more of HPV types 16,18,31,33,35 ,39,45,51,52,5 6,58,59, or 68. These high/intermedi ate risk HPV types are associated with dysplasia and some cervical cancers. [facility] Report Status Final [id number] [facility] 07/25/2007 15:1 0 EDT 08/04/2007 15:10 EDT Elva Madden CHARGE COORDINATOR MICROBIOLOGY - GENER AL ORDERABLES [facility] [address] [place] [address] * CYTOPATHOLOGY (07/25/2007 0:00 EDT) Pathology Report: CYTOPATHOLOGY REPORT Reports generated via electronic interface contain original data; however they are lacking the format of the original report. Caution should be taken when reading/interpreti ng unformatted reports. Name: ? MOLLY WEBER ? Accession #: ? [id number] : ? 1965 (Age: 42) ??F ?Collect Date: ? 07/25/2007 Location: ? [facility] ? Receive Date: ? 07/26/2007 Provider: ?ELVA MADDEN CHARGE COORDINATOR Copy to: ? Specimen/Source: ?ThinPrep Pap Test, Cervix/Endocervix, processed on [employer] ThinPrep Imaging System, with manual evaluation Last Menstrual Period: ? 06/26/07 Other: ? HPVA - HPV testing requested if ASC-US on the current ThinPrep Pap test. ? SPECIMEN ADEQUACY ? Satisfactory for Evaluation - transformation zone component present GENERAL CATEGORIZATION ? Epithelial Cell Abnormality INTERPRETATION ? Squamous Cell Abnormality - High grade squamous intraepithelial lesion (HSIL). Shift in tamera present suggestive of bacterial vaginosis. EDUCATIONAL NOTES/RECOMMENDATI ONS ? [facility] recommends following the 2001 Consensus Guidelines for the Management of Women with Cervical Cytological Abnormalities (PATRIZIA,2002;287:212 0-9). Management algorithms have been distributed by [facility] and are available online at www.ASCCP.org. ? Document reviewed and electronically signed by: ? Polly Byrd MD ? Report Date: ??08/02/2007 09:01 End of Report [facility] 07/25/2007 07/26/2007 Elva Madden CHARGE COORDINATOR PATHOLOGY ORDERABLES [facility] [address] [place] [address] documented in this encounter Visit Diagnoses Not on filedocumented in this encounter
--- OUTSIDE RECORDS SUMMARY | 2024-08-14 19:58 | XMS_ITS | Encounter Summary ---
Author Organization [facility] [place] [address] Care Team Providers Care Resource Specialist Teacher Name Role Phone Priscilla Salvador APRN Primary Care Provider +1- [phone] Encounter Details Date Type Department Care Team (Late st Contact Info) Description 03/13/2014 External [place] [address] Bin Mark MD [facility] [place] [address] Hyperthyroidism Social History Tobacco Use Types Packs/Day [...] Diagnosis Comments T3 TOTAL STAT 05/29/2014 Hyperthyroidism T4, FREE Routine 03/08/2014 7:37 AM EDT Hyperthyroidism documented in this encounter Results * (ABNORMAL) T3 (05/29/2014) T3 Total 79(External Lab) Blood specimen (specimen) 05/29/2014 Duyen Garcia MD CHEMISTRY ORDERAB LES * (ABNORMAL) T4, free (03/08/2014 7:37 AM EDT) Free T4 0.59(APPLICATION DESIGNER AL/ABN) Blood specimen (specimen) Cadenceronald James Jose SARMIENTO CHEMISTRY ORDERAB LES documented in this encounter Visit Diagnoses Diagnosis Hyperthyroidism Thyrotoxicosis without mention of goiter or other cause, without mention of thyrotoxic crisis or storm documented in this encounter Care Teams Resource Specialist Teacher Relationship Specialty Start Date End Date Priscilla Salvador, TERRAZZO GRINDER [facility] [address] [place] [address] PCP - General 10/21/10 documented as of this encounter
--- OUTSIDE RECORDS SUMMARY | 2024-08-14 19:58 | XMS_ITS | Encounter Summary ---
Author Organization [facility] [place] [address] Care Team Providers Care Box Blank Machine Operator Name Role Phone Priscilla Salvador APRN Primary Care Provider +1- [phone] Encounter Details Date Type Department Care Team (Late st Contact Info) Description 03/14/2014 Telephone [place] [id number] Bin Mark MD [facility] [place] [address] Social History Tobacco Use Types Packs/Day Years Used Date Smoking Tobacco: Every Day Cigarettes 1 20 Sex and Gender Information Value Date Recorded Sex Assigned at Not on file Gender Identity Not on file Sexual Orientation Not on file documented as of this encounter Miscellaneous Notes * Telephone Encounter - Bin Mark MD - 03/14/2014 8:35 AM EDT Opened in error documented in this encounter Plan of Treatment Not on file documented as of this encounter Visit Diagnoses Not on filedocumented in this encounter Care Teams Box Blank Machine Operator Relationship Specialty Start Date End Date Priscilla Salvador APRN [facility] [address] [place] [address] PCP - General 10/21/10 documented as of this encounter
--- OUTSIDE RECORDS SUMMARY | 2024-08-14 19:58 | XMS_ITS | Encounter Summary ---
Author Organization [facility] [place] [address] Care Team Providers Care Windows Server Architect Name Role Phone Priscilla Salvador APRN Primary Care Provider +1- [phone] Encounter Details Date Type Department Care Team (Late st Contact Info) Description 04/17/2014 Orders [place] [address] Bin Mark MD [facility] [place] [address] Hyperthyroidism (Primary Dx) Social History Tobacco Use Types Packs/Day Years Used Date Smoking Tobacco: Every Day Cigarettes 1 20 Sex and Gender Information Value Date Recorded Sex Assigned at Not on file Gender Identity Not on file Sexual Orientation Not on file documented as of this encounter Plan of Treatment Not on file documented as of this encounter Results * (ABNORMAL) TSH (05/29/2014) Thyroid Stimulating Hormone 0.34(EXTER NAL/ABN) Blood specimen (specimen) 05/29/2014 Cameron Goins MD CHEMISTRY ORDERABLES * (ABNORMAL) T3 (05/29/2014) T3 Total 103(Externa l Lab) Blood specimen (specimen) 05/29/2014 Cameron Goins MD CHEMISTRY ORDERABLES * (ABNORMAL) T4, free (05/29/2014) Free T4 1.01(Recovery Manager al Lab) Blood specimen (specimen) 05/29/2014 Cameron Goins MD CHEMISTRY ORDERABLES documented in this encounter Visit Diagnoses Diagnosis Hyperthyroidism- Primary Thyrotoxicosis without mention of goiter or other cause, without mention of thyrotoxic crisis or storm documented in this encounter Care Teams Windows Server Architect Relationship Specialty Start Date End Date Priscilla Salvador, VICE PRESIDENT SUPPLY CHAIN [facility] [address] [place] [address] PCP - General 10/21/10 documented as of this encounter
--- OUTSIDE RECORDS SUMMARY | 2024-08-14 19:58 | XMS_ITS | Clinical Summary ---
Author Organization [facility] [place] [address] Care Team Providers Care Leather Dresser Name Role Phone Priscilla Salvador APRN Primary Care Provider +1- [phone] Allergies No known active allergies Medications Medication Sig Dispensed Refills Start Date End Date Status methimazole (TAPAZOLE) 5 mg Tablet TAKE 1 TABLET(5MG) BY MOUTH EVERY OTHER DAY ALTERNATING WITH 1/2TAB(2.5MG)EVERY OTHER DAY 30 tablet 10 04/26/2015 Active Social History Tobacco Use Types Packs/Day Years Used Date Smoking Tobacco: Every Day Cigarettes 1 20 Sex and Gender Information Value Date Recorded Sex Assigned at Not on file Gender Identity Not on file Sexual Orientation Not on file Last Filed Vital Signs Vital Sign Reading Time Taken Comments Blood Pressure 120/81 09/17/2014 11:37 AM EDT Pulse 76 09/17/2014 11:37 AM EDT Temperature - - Respiratory Rate - - Oxygen Saturation - - Inhaled Oxygen Concentration - - Weight 75.3 kg (166 lb) 09/17/2014 11:37 AM EDT Height 171.5 cm (5' 7.5) 09/17/2014 11:37 AM ED T Body Mass Index 25.62 09/17/2014 11:37 AM EDT Plan of Treatment Health Maintenance Due Date Last Done Comments CT Colonography 1965 Colonoscopy 1965 Colorectal Cancer Screening 1965 FIT DNA 1967 FIT 1967 Sigmoidoscopy (10 year) with FIT yearly 1967 Sigmoidoscopy 1965 HIV screen 1985 Hepatitis C Screening 1985 Hepatitis B vaccine (0-59 yrs) (1) 1986 Tdap adult 1986 Tetanus vaccine 1986 HPV test 1997 PAP Smear 1997 Breast Cancer Share Decision Needed 2007 Breast Cancer screening 2007 Zoster vaccine (1 of 2) 2017 Advance Directive 2022 Covid-19 Vaccine (1 - 2022- season) 2024 Influenza (Flu) vaccine (1 o f 1 - Influenza standard series) 07/30/2024 Care Teams Leather Dresser Relationship Specialty Start Date End Date Priscilla Salvador APRN [facility] [address] [place] [address] PCP - General 10/21/10
--- OUTSIDE RECORDS SUMMARY | 2024-08-14 19:58 | XMS_ITS | Encounter Summary ---
Author Organization [facility] [place] [address] Care Team Providers Care Marketing Program Manager Name Role Phone Priscilla Salvador APRN Primary Care Provider +1- [phone] Encounter Details Date Type Department Care Team (Late st Contact Info) Description 03/16/2014 Telephone [place] [id number] Bin Mark MD [facility] [place] [address] Social History Tobacco Use Types Packs/Day Years Used Date Smoking Tobacco: Every Day Cigarettes 1 20 Sex and Gender Information Value Date Recorded Sex Assigned at Not on file Gender Identity Not on file Sexual Orientation Not on file documented as of this encounter Miscellaneous Notes * Telephone Encounter - Bin Mark MD - 03/16/2014 10:09 AM EDT Spoke Ms Mercado. Informed her that her thyroid tests are actually low. Will decrease the dose of methimazole from 30 to 5 mg daily and recheck the levels in 3 weeks. documented in this encounter Plan of Treatment Not on file documented as of this encounter Results * (ABNORMAL) T3 (04/11/2014 7:32 AM EDT) T3 Total 73(External Lab) Blood specimen (specimen) Cameron Goins MD CHEMISTRY ORDERABLES * (ABNORMAL) T4, free (04/11/2014 7:32 AM EDT) Free T4 0.78(Customer Supply Coordinator al Lab) Blood specimen (specimen) Cameron Goins MD CHEMISTRY ORDERABLES documented in this encounter Visit Diagnoses Diagnosis Hyperthyroidism- Primary Thyrotoxicosis without mention of goiter or other cause, without mention of thyrotoxic crisis or storm documented in this encounter Care Teams Marketing Program Manager Relationship Specialty Start Date End Date Priscilla Salvador APRN [facility] [address] [place] [address] PCP - General 10/21/10 documented as of this encounter
--- OUTSIDE RECORDS SUMMARY | 2024-08-14 19:58 | XMS_ITS | Encounter Summary ---
Author Organization [facility] Address [address] [place] [address] Care Team Providers Care Pipe Maker Name Role Phone Unavailable Primary Care Provider Unavailabl e Encounter Details Date Type Department Care Team (Late st Contact Info) Description 08/15/2009 Orders Only [facility] Laboratory Services - [facility] ([facility]) [address] [place], [place] [address] Elva Madden, [facility] [address] [place] [address] [place] [phone] Social History Tobacco Use Types Packs/Day Years Used Date Smoking Tobacco: Never Assessed Sex and Gender Information Value Date Recorded Sex Assigned at Not on file Gender Identity Not on file Sexual Orientation Not on file documented as of this encounter Plan of Treatment Not on file documented as of this encounter Procedures Procedure Name Priority Date/Time Associated Diagnosis Comments CYTOPATHOLOGY Routine 08/15/2009 0:00 EDT documented in this encounter Results * CYTOPATHOLOGY (08/15/2009 0:00 EDT) Pathology Report: CYTOPATHOLOGY REPORT ? Reports generated via electronic interface contain original data; ? however they are lacking the format of the original report. ? Caution should be taken when reading/interpreti ng unformatted reports. ? Name: ? MOLLY WEBER ? Accession #: ? [id number] ? : ? 1965 (Age: 44) ??F ?Collect Date: ? 08/15/2009 ? Location: ? [facility] ? Receive Date: ? 08/15/2009 ? Provider: ?ELVA EVA WIND TURBINE CONTROLS ENGINEER ? Copy to: ? Specimen/Source: ?Pap Test, Cervix/Endocervix, ThinPrep Imaging System ? with manual evaluation ? Last Menstrual Period: ? 8/7/09 ? Hormonal/Contracep tive Status: ? Tubal ligation ? Previous Gynecologic Pathology: ? HSIL: 8/07, 8/08 ? HPV: 8/07 ? NATE III: 10/08, 4/09 pap normal ? Treatment History: ? Cervical biopsy: 10/07 X2 - NATE III ? LEEP: 1/08 ? Cone biopsy: 1/08 ? Other: ? HPVA - HPV testing requested if ASC-US on the current ThinPrep Pap test. ? SPECIMEN ADEQUACY ? Satisfactory for Evaluation ? - transformation zone component present ? GENERAL CATEGORIZATION ? Negative for Intraepithelial Lesion or Malignancy ? Document reviewed and electronically signed by: ? Lynan Diaz, CT(ASCP) ? Report Date: ??08/22/2009 14:44 ? End of Report ? [facility] 08/15/2009 08/15/2009 Elva Madden WIND TURBINE CONTROLS ENGINEER PATHOLOGY ORDERABLES [facility] [address] [place] [address] documented in this encounter Visit Diagnoses Not on filedocumented in this encounter
--- OUTSIDE RECORDS SUMMARY | 2024-08-14 19:58 | XMS_ITS | Encounter Summary ---
Author Organization [facility] Address [address] [place] [address] Care Team Providers Care Dials Supervisor Name Role Phone Unavailable Primary Care Provider Unavailabl e Encounter Details Date Type Department Care Team (Late st Contact Info) Description 10/23/2011 Results Only [facility] Laboratory Services - [facility] ([facility]) [address] [place], [place] [address] Elva Madden, [facility] [address] [place] [address] [place] [address] Social History Tobacco Use Types [...] Diagnosis Comments PAP TEST- RESULT ONLY Routine 10/23/2011 0:00 EST documented in this encounter Results * PAP TEST- RESULT ONLY (10/23/2011 0:00 EST) Pathology Report: CYTOPATHOLOGY REPORT Reports generated via electronic interface contain original data; however they are lacking the format of the original report. Caution should be taken when reading/interpreti ng unformatted reports. Name: ? MOLLY WEBER ? Accession #: ? [id number] : ? 1965 (Age: 46) ??F ?Collect Date: ? 10/23/2011 Location: ? [facility] ? Receive Date: ? 10/27/2011 Provider: ?ELVA MADDEN VETERANS ADVISER Copy to: ?SOHAIL WATSON LEGAL SUPPORT ASSISTANT ? Specimen/Source: ?Pap Test, Cervix/Endocervix, ThinPrep Imaging System with manual evaluation Last Menstrual Period: ? 10/09/2011 Previous Gynecologic Pathology: ? NATE III: 2008 Treatment History: ? Cone biopsy: 2008 ? SPECIMEN ADEQUACY ? Satisfactory for Evaluation - transformation zone component present GENERAL CATEGORIZATION ? Negative for Intraepithelial Lesion or Malignancy ? Document reviewed and electronically signed by: ? LAILA Lezama(ASCP) ? Report Date: ??10/29/2011 14:25 End of Report [facility] 10/23/2011 10/27/2011 Elva Madden VETERANS ADVISER PATHOLOGY ORDERABLES [facility] [address] [place] [address] documented in this encounter Visit Diagnoses Not on filedocumented in this encounter
--- OUTSIDE RECORDS SUMMARY | 2024-08-14 19:58 | XMS_ITS | Encounter Summary ---
Author Organization [facility] Address [address] [place] [address] Care Team Providers Care Professor/Nurse Anesthetist Name Role Phone Unavailable Primary Care Provider Unavailabl e Encounter Details Date Type Department Care Team (Late st Contact Info) Description 12/09/2007 Results Only [facility] [address] [place] [address] Elizabeth Jarvis MD [address] [place] [address] [place] [address] Social History Tobacco Use Types Packs/Day Years Used Date Smoking Tobacco: Never Assessed Sex and Gender Information Value Date Recorded Sex Assigned at Not on file Gender Identity Not on file Sexual Orientation Not on file documented as of this encounter Plan of Treatment Not on file documented as of this encounter Procedures Procedure Name Priority Date/Time Associated Diagnosis Comments SURGICAL PATHOLOGY Routine 12/09/2007 0:00 EST documented in this encounter Results * SURGICAL PATHOLOGY (12/09/2007 0:00 EST) Pathology Report: SURGICAL PATHOLOGY REPORT Reports generated via electronic interface contain original data; however they are lacking the format of the original report. Caution should be taken when reading/interpreti ng unformatted reports. Name: ? MOLLY WEBER ? Accession #: ? [id number] ? : ? 1965 (Age: 42) ??F ? Collect Date: ? 12/09/2007 ? Location: ? [facility] ? Receive Date: ? 12/09/2007 ? Provider: ELIZABETH JARVIS MD Copy to: ? Final Pathologic Diagnosis: ? Cervix, LEEP/cone, biopsy: - Focal NATE III. - Margins are negative for dysplasia/carcinom a. Document reviewed and electronically signed by: MARIANO CEDEÑO MD Report ??Date: 12/13/2007 18:17 By the signature above, the attending physician certifies that he/she has personally conducted a gross and/or microscopic examination of the described specimens and rendered or confirmed the above diagnosis. Specimen(s) Received: ? LEEP cone cervix Clinical History: ? 09/27/07 cx bx NATE II-NATE III; LMP: 11/29/07 Gross Description: ? Received in formalin labelled Weber and LEEP/cone cervix is the product of an unoriented LEEP received as three fragments. ??The first curvilinear 5.0 x 1.2 cm portion is excised to a maximum depth of 0.4 cm. ??The central os region appears smooth with a smooth white-gee nodular periphery of mucosa. ??The endocervical region is inked black and the ectocervical region is inked blue. ??The specimen is sequentially sectioned and entirely submitted. ??The smaller 1.9 x 0.3 cm fragment is excised to a maximum depth of 0.8 cm and the larger 2.4 x 0.3 cm fragment is excised to a maximum depth of 0.3 cm. ??The orientation of these two smaller fragments cannot be determined, thus both are inked black, sectioned, and entirely submitted. ??Sections are submitted as follows: BLOCK CROOK A1-A7 ?Sequential sections of LEEP excision A8 ?Smaller fragment, trisected A9, A10 ?Larger fragment, sectioned (Jai Hughes)/ana maría End of Report [facility] 12/09/2007 12/09/2007 13: 37 EST Elizabeth Jarvis MD PATHOLOGY ORDERABLES [facility] [address] [place] [address] documented in this encounter Visit Diagnoses Not on filedocumented in this encounter
--- OUTSIDE RECORDS SUMMARY | 2024-08-14 19:58 | XMS_ITS | Encounter Summary ---
Author Organization [facility] [place] [address] Care Team Providers Care Top Dyeing Machine Tender Name Role Phone Madeleine Priscilla Metzger APRN Primary Care Provider +1- [phone] Encounter Details Date Type Department Care Team (Late st Contact Info) Description 09/03/2015 Telephone [place] [address] Heidi Pimentel LPN Social History Tobacco Use Types Packs/Day Years Used Date Smoking Tobacco: Every Day Cigarettes 1 20 Sex and Gender Information Value Date Recorded Sex Assigned at Not on file Gender Identity Not on file Sexual Orientation Not on file documented as of this encounter Miscellaneous Notes * Telephone Encounter - Heidi Pimentel LPN - 09/03/2015 4:12 PM EDT Message on endo nurse line from Yisel Huber MATHEMATICS TEACHER that she saw patient for first time today. Is asking if patient is to be seen back in f/u by endocrine and if now what needs to be done. Patient last seen 09/17/[address] Mark P: Thyroid blood work in 3 months Continue the current methimazole dosing F/U in 6 months with tsh, free t4 and t3. R/c to Yisel. Message left on her v/m to r/c to nurse. documented in this encounter Plan of Treatment Not on file documented as of this encounter Visit Diagnoses Not on filedocumented in this encounter Care Teams Top Dyeing Machine Tender Relationship Specialty Start Date End Date Priscilla Salvador, YEFRI [facility] [address] [place] [address] PCP - General 10/21/10 documented as of this encounter
--- OUTSIDE RECORDS SUMMARY | 2024-08-14 19:58 | XMS_ITS | Encounter Summary ---
Author Organization [facility] Address [address] [place] [address] Care Team Providers Care Household Appliance Assembler Name Role Phone Unavailable Primary Care Provider Unavailabl e Encounter Details Date Type Department Care Team (Late st Contact Info) Description 12/29/2005 Results Only [facility] - [facility] [address] [place] [address] Rodrigo Rodrigez MD [address] [place], [place] [id number] Social History Tobacco Use Types Packs/Day Years Used Date Smoking Tobacco: Never Assessed Sex and Gender Information Value Date Recorded Sex Assigned at Not on file Gender Identity Not on file Sexual Orientation Not on file documented as of this encounter Plan of Treatment Not on file documented as of this encounter Procedures Procedure Name Priority Date/Time Associated Diagnosis Comments SURGICAL PATHOLOGY Routine 12/29/2005 0:00 EST documented in this encounter Results * SURGICAL PATHOLOGY (12/29/2005 0:00 EST) Pathology Report: SURGICAL PATHOLOGY REPORT Reports generated via electronic interface contain original data; however they are lacking the format of the original report. Caution should be taken when reading/interpreti ng unformatted reports. Name: ? MOLLY WEBER ? Accession #: ? [id number] ? : ? 1965 (Age: 40) ??F ? Collect Date: ? 12/29/2005 ? Location: ? [facility] ? Receive Date: ? 12/29/2005 ? Provider: RODRIGO RODRIGEZ MD Copy to: EVELINA FERRARA CNM ? Final Pathologic Diagnosis: A. ?Fallopian tube, left, ligation: 1. ?Segment of fallopian tube with decidual reaction. 2. ?Complete cross sections identified. B. ?Fallopian tube, right, ligation: 1. ?Segment of fallopian tube with no specific pathologic features. 2. ?Complete cross sections identified. ??See comment. Comment: ? Deeper sections of (B1) have been examined. ??(Dr. Mejía)/[facility] Document reviewed and electronically signed by: DAMARI MEJÍA MD Report ??Date: 12/31/2005 11:15 By the signature above, the attending physician certifies that he/she has personally conducted a gross and/or microscopic examination of the described specimens and rendered or confirmed the above diagnosis. Specimen(s) Received: A. ?Left fallopian tube B. ?Right fallopian tube Clinical History: ? Post tubal ligation; desires sterilization Gross Description: ? Received in formalin labeled Dimaricharan and left fallopian tube is a gee-pink, tubular, 0.8 x 0.3 cm tissue with gee glistening serosa. ??Upon sectioning, the cut surfaces are gee-white with a central pinpoint lumen. ??Two physician relations representative sections are submitted as (A). Received in formalin labeled Barbara and right fallopian tube is a gee-pink 0.8 x 0.5 x 0.5 cm tissue with gee glistening serosa. ??The cut surfaces are gee-pink and show a pinpoint lumen. ??The specimen is trisected and two physician relations representative sections are submitted as (B1). ??The remaining specimen is submitted as (B2). ??(Lucila Crow)/[facility] End of Report [facility] 12/29/2005 12/29/2005 15: 18 EST Rodrigo Rodrigez MD PATHOLOGY ORDERABLES [facility] [address] [place] [address] documented in this encounter Visit Diagnoses Not on filedocumented in this encounter
--- OUTSIDE RECORDS SUMMARY | 2024-08-14 19:58 | XMS_ITS | Encounter Summary ---
Author Organization [facility] Address [address] [place] [address] Care Team Providers Care Epic Willow Specialist Name Role Phone Unavailable Primary Care Provider Unavailabl e Encounter Details Date Type Department Care Team (Late st Contact Info) Description 06/25/2005 Results Only [facility] - [facility] [address] [place] [address] Hilario Tenorio MD [address] [place] [address] Social History Tobacco Use Types Packs/Day Years Used Date Smoking Tobacco: Never Assessed Sex and Gender Information Value Date Recorded Sex Assigned at Not on file Gender Identity Not on file Sexual Orientation Not on file documented as of this encounter Plan of Treatment Not on file documented as of this encounter Procedures Procedure Name Priority Date/Time Associated Diagnosis Comments CYTOPATHOLOGY Routine 06/25/2005 0:00 EDT documented in this encounter Results * CYTOPATHOLOGY (06/25/2005 0:00 EDT) Pathology Report: CYTOPATHOLOGY REPORT Reports generated via electronic interface contain original data; however they are lacking the format of the original report. Caution should be taken when reading/interpreti ng unformatted reports. Name: ? MOLLY WEBER ? Accession #: ? [id number] : ? 1965 (Age: 40) ??F ?Collect Date: ? 06/25/2005 Location: ? [facility] ? Receive Date: ? 06/26/2005 Provider: ?HILARIO TENORIO MD Copy to: ? Specimen/Source: ?ThinPrep Pap Test, Cervix/Endocervix, processed on [employer] ThinPrep Imaging System, with manual evaluation Last Menstrual Period: ? 05/02 Other: ? HPVA - HPV testing requested if ASC-US on the current ThinPrep Pap test. ? SPECIMEN ADEQUACY ? Satisfactory for Evaluation - transformation zone component present GENERAL CATEGORIZATION ? Negative for Intraepithelial Lesion or Malignancy INTERPRETATION ? Reactive cellular changes associated with inflammation present (includes repair). Fungal organisms present morphologically consistent with Hermelinda species. ? Document reviewed and electronically signed by: ? BRIAN XAVIER MD ? Report Date: ??07/07/2005 09:10 End of Report [facility] 06/25/2005 06/26/2005 Hilario Tenorio MD [facility] [address] [place] [address] documented in this encounter Visit Diagnoses Not on filedocumented in this encounter
--- OUTSIDE RECORDS SUMMARY | 2024-08-14 19:58 | XMS_ITS | Encounter Summary ---
Author Organization [facility] [place] [address] Care Team Providers Care Inspector Packer Name Role Phone Priscilla Salvador SOLAR FIELD SERVICE TECHNICIAN Primary Care Provider +1- [phone] Encounter Details Date Type Department Care Team (Late st Contact Info) Description 09/17/2014 11:30 AM EDT Office [place] [address] Bin Mark MD [facility] [place] [address] Graves disease (Primary Dx) Discharge Disposition: Home Social History Tobacco Use Types Packs/Day Years Used Date Smoking Tobacco: Every Day Cigarettes 1 20 Sex and Gender Information Value Date Recorded Sex Assigned at Not on file Gender Identity Not on file Sexual Orientation Not on file documented as of this encounter Last Filed Vital Signs Vital Sign Reading [...] Mass Index 25.62 09/17/2014 11:37 AM EDT documented in this encounter Progress Notes * Bin Mark MD - 09/17/2014 11:42 AM EDT Mr Mercado is 49 yr old female who presents for evaluation of hyperthyroidism due to Grave's. She is taking 5 mg of methimazole alternating with 2.5 mg daily. States that she is doing well. She is sleeping well. Weight loss/gain- No Sleep disturbances- No Forgetfulness- No Depression- No Vision/eye problems- No Heat sensitivity- No Dry skin- No Fatigue- No Hair change- No Palpitations- No Increased appetite- No Hyperdefication- No Menstrual irregularities- No Irritability/nervousness- No Muscle weakness/tremor- No Clammy skin- No Intolerance to cold- No Globus sensation- no Difficulty swallowing- no Difficulty breathing- no Hoarseness or voice change- No PMH/PSh/FH/MEDS/allergies: none ROS: as above rest is negative PE: Blood pressure 120/81, pulse 76, height 171.5 cm (5' 7.5), weight 75.297 kg (166 lb). General: well nourished, in no distress Head/Eyes: anicteric, PERRL, No conjunctival injection, no proptosis, no lid lag ENT: without Lesions/exudates Neck: Supple, full ROM, no LAD or masses Thyroid: very slightly enlarged. No nodules no bruit. CV: RRR, no murmur/gallops/rubs Pulm: Non-labored, CTAB Abd: ND, positive bowel sounds, soft, NT, no masses Peripheral: No edema, palpable DP pulses Neuro: CN intact including visual olvera, sensation intact to light touch, reflexes in bl knees normal. Skin: no rashes, not dry. 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 She is clinically euthyroid. She is taking methimazole 5 mg alternating with 2.5 and plan to continue that. Decrease in size of her thyroid gland. No graves eye disease P: Thyroid blood work in 3 months Continue the current methimazole dosing F/U in 6 months with tsh, free t4 and t3. Bin Mark Endocrine Staff Physician [facility] documented in this encounter Plan of Treatment Not on file documented as of this encounter Visit Diagnoses Diagnosis Graves disease- Primary Toxic diffuse goiter without mention of thyrotoxic crisis or storm documented in this encounter Care Teams Inspector Packer Relationship Specialty Start Date End Date Priscilla Salvador, YEFRI [facility] [address] [place] [address] PCP - General 10/21/10 documented as of this encounter
--- OUTSIDE RECORDS SUMMARY | 2024-08-14 19:58 | XMS_ITS | Encounter Summary ---
Author Organization [facility] [place] [address] Care Team Providers Care Product Safety Associate Name Role Phone Priscilla Salvador APRN Primary Care Provider +1- [phone] Encounter Details Date Type Department Care Team (Late st Contact Info) Description 04/27/2015 Orders [place] [address] Bin Mark MD [facility] [place] [address] Diabetes mellitus type 2, uncontrolled Social History Tobacco Use Types Packs/Day Years Used Date Smoking Tobacco: Every Day Cigarettes 1 20 Sex and Gender Information Value Date Recorded Sex Assigned at Not on file Gender Identity Not on file Sexual Orientation Not on file documented as of this encounter Plan of Treatment Not on file documented as of this encounter Visit Diagnoses Diagnosis Diabetes mellitus type 2, uncontrolled Type II or unspecified type diabetes mellitus without mention of complication, uncontrolled documented in this encounter Care Teams Product Safety Associate Relationship Specialty Start Date End Date Priscilla Salvador APRN [facility] [address] [facility] [place] [address] PCP - General 10/21/10 documented as of this encounter
--- OUTSIDE RECORDS SUMMARY | 2024-08-14 19:58 | XMS_ITS | Encounter Summary ---
Author Organization [facility] [place] [address] Care Team Providers Care Mill Controller Name Role Phone Priscilla Salvador APRN Primary Care Provider +1- [phone] Reason for Visit * Reason Comments Hyperthyroidism Encounter Details Date Type Department Care Team (Late st Contact Info) Description 01/01/2014 1:30 PM EST Office [place] [address] Galilea Jean MD [facility] [address] [place] [address] Hyperthyroidism Discharge Disposition: Home Social History Tobacco Use Types Packs/Day Years Used Date Smoking Tobacco: Every Day Cigarettes 1 20 Sex and Gender Information Value Date Recorded Sex Assigned at Not on file Gender Identity Not on file Sexual Orientation Not on file documented as of this encounter Last Filed Vital Signs Vital Sign Reading Time Taken Comments Blood Pressure 127/76 01/01/2014 12:49 PM EST Pulse 90 01/01/2014 12:49 PM EST Temperature - - Respiratory Rate - - Oxygen Saturation - - Inhaled Oxygen Concentration - - Weight 74.1 kg (163 lb 6.4 oz) 01/01/2014 12:49 PM EST Height 170.9 cm (5' 7.28) 01/01/2014 12:[address] Body Mass Index 25.38 01/01/2014 12:49 PM EST documented in this encounter Progress Notes * Galilea Jean MD - 01/01/2014 4:08 PM EST I saw this patient with Dr. Mark . I reviewed the alva portions of the history and physical exam, and reviewed pertinent lab data. I answered all patient questions. I was involved in all medical decision making and agree with this plan. * Jesus Markjaymieeleanor - 01/01/2014 1:01 PM EST Ms Mercado is a 48 yr old female who comes in consultation for thyrotoxicosis. States that about 3 yrs ago she was noted to have slightly underactive thryoid and was started on levothyroxine 50 mcg and follow up lab showed high levels and then the dose was decreased to 25 mcg which she took for oneyear and then repeat tsh in February 2013 showed suppressed tsh. Hence was taken off levothyroxine and then repeat blood work showed overactive thyroid and another blood work done in sep also showed over active thyroid. Then she had US done thyroid which showed heterogenous gland. Weight loss/gain- Lost a few pounds - 5 pounds Sleep disturbances- no Forgetfulness- No Depression- No Vision/eye problems- No Heat sensitivity- No Dry skin- No Fatigue- Tired a little Hair change- No Palpitations- yes Increased appetite- yes Hyperdefication- Twice a day Menstrual irregularities- every month Irritability/nervousness- yes Muscle weakness/tremor- No Clammy skin- No Intolerance to cold- No Onycholysis Globus sensation- no Difficulty swallowing- Some times dry food Difficulty breathing- no Hoarseness or voice change- No PMH: None PSH: Jaw surgery - for underbite FH: Son - graves - tapazole Dad - hypothyroidism Aunt - hypo PGM - hypo MOM - diabetic Dad - bladder cancer Mom ,dad - skin cancer MGF - heart disease MOm - ckd stage 4 PGF - stomach cancer Social: Smoke - under a pack a day No alcohol No illicit drugs Kids - 3 kids - Work - qa techincal support adminis Meds/Allergies : reviewed ROS: rest is negative PE: Blood pressure 127/76, pulse 90, height 170.9 cm (5' 7.28), weight 74.118 kg (163 lb 6.4 oz). General: well nourished, in no distress Head/Eyes: anicteric, PERRL, No conjunctival injection, no proptosis, no lid lag ENT: without Lesions/exudates Neck: Supple, full ROM, no LAD or masses Thyroid: normal, with no nodules, no bruit CV: RRR, no murmur/gallops/rubs Pulm: Non-labored, CTAB Abd: ND, positive bowel sounds, soft, NT, no masses Peripheral: No edema, palpable DP pulses Neuro: reflexes in bl knees normal, positive tremors Skin: no rashes, not dry, positive onycholysis of right great toe and Left three toes. A/P: Ms Mercado is a 48 yr old female who comes in consultation for thyrotoxicosis. Based on the positive TPO it is possible she has Hashitoxicosis, although her symptoms of hyperthyroid are longer than expected for Hashitoxicosis. It is possible she has Grave's especially with hypervascularity based onthe US done in our office. It is also possible she has subacute thyroiditis - this is less likely based on the duration of symptoms.So will get thyroid labs tsh, free t4, t3 and TSI (TSH receptor antibody). If TSI is negative will get nuclear imaging done. If she is thyrotoxic would even consider beta blockers. P: tsh Free t4 t3 TSI Discussed with Dr Miranda Mark Endocrine Fellow documented in this encounter Plan of Treatment Not on file documented as of this encounter Procedures Procedure Name Priority Date/Time Associated Diagnosis Comments THYROID STIMULATING IMMUNOGLOBULIN-KNUTSON Routine 01/01/2014 2:16 PM EST Hyperthyroidism T3 TOTAL STAT 01/01/2014 2:16 PM EST Hyperthyroidism TSH Routine 01/01/2014 2:16 PM EST Hyperthyroidism T4, FREE Routine 01/01/2014 2:16 PM EST Hyperthyroidism documented in this encounter Results * (ABNORMAL) Thyroid Stimulating Immunoglobulin (01/01/2014 2:16 PM EST) [facility] 4.5(H) <=1.3 TSI index CERNER MILLENNIUM Comment: Test Performed by: [address] [id number] Compensation Supervisor: Virgilio Ho III, M.D. Blood specimen (specimen) 01/01/2014 2:16 PM EST 01/01/2014 3:43 PM EST Narrative Resulting Agency Comment Spec In Lab Galilea Jean MD IMMUNOLOGY ORDERA BLES CERNER MILENAENNIUM * (ABNORMAL) T3 (01/01/2014 2:16 PM EST) Pathologist [facility] [place] T3 Total 254(H) 75 - 170 ng/dL CERNER MILLENNIUM Blood specimen (specimen) 01/01/2014 2:16 PM EST 01/01/2014 2:19 PM EST Narrative Resulting Agency Comment Spec In Lab Galilea Jean MD CHEMISTRY ORDERAB LES Performing Organization Address City/[facility]/ZIP Co de Phone Number [facility] MI[facility] * (ABNORMAL) T4, free (01/01/2014 2:16 PM EST) Pathologist [facility] [place] Free T4 2.71(H) 0.90 - 1.60 ng/dL CERNER MILLENNIUM Blood specimen (specimen) 01/01/2014 2:16 PM EST 01/01/2014 2:19 PM EST Narrative Resulting Agency Comment Spec In Lab Galilea Jean MD CHEMISTRY ORDERAB LES CERNER MILENAENNIUM * (ABNORMAL) TSH (01/01/2014 2:16 PM EST) Pathologist [facility] [place] Thyroid Stimulating Hormone <0.01(L) 0.27 - 4.20 mcIU/mL CERNER MILLENNIUM Comment:result rechecked - l aiden Blood specimen (specimen) 01/01/2014 2:16 PM EST 01/01/2014 2:19 PM EST Narrative Resulting Agency Comment Spec In Lab Galilea Jean MD CHEMISTRY ORDERAB LES [facility] documented in this encounter Visit Diagnoses Diagnosis Hyperthyroidism Thyrotoxicosis without mention of goiter or other cause, without mention of thyrotoxic crisis or storm documented in this encounter Care Teams Mill Controller Relationship Specialty Start Date End Date Priscilla Salvador, SALES ORDER ADMINISTRATOR [facility] [address] [place] [address] PCP - General 10/21/10 documented as of this encounter
--- OUTSIDE RECORDS SUMMARY | 2024-08-14 19:58 | XMS_ITS | Encounter Summary ---
Author Organization [facility] Address [address] [place] [address] Care Team Providers Care Stock Parts Inspector Name Role Phone Unavailable Primary Care Provider Unavailabl e Encounter Details Date Type Department Care Team (Late st Contact Info) Description 10/28/2012 Results Only [facility] Laboratory Services - [facility] ([facility]) [address], [place] [address] Elva Madden, [facility] [address] [place] [address] [place] [address] Social History Tobacco Use Types [...] Diagnosis Comments PAP TEST- RESULT ONLY Routine 10/28/2012 0:00 EST documented in this encounter Results * PAP TEST- RESULT ONLY (10/28/2012 0:00 EST) Pathology Report: CYTOPATHOLOGY REPORT Reports generated via electronic interface contain original data; however they are lacking the format of the original report. Caution should be taken when reading/interpreti ng unformatted reports. Name: ? MOLLY WEBER ? Accession #: ? [id number] : ? 1965 (Age: 47) ??F ?Collect Date: ? 10/28/2012 Location: ? [facility] ? Receive Date: ? 10/31/2012 Provider: ?ELVA MADDEN CHIEF CONSOLE OPERATOR Copy to: ?SOHAIL WATSON SUBSTATION MANAGER ? Specimen/Source: ?Pap Test, Cervix/Endocervix, ThinPrep Imaging System with manual evaluation Last Menstrual Period: ? 10/19/12 Previous Gynecologic Pathology: ? NATE III: 2008 Treatment History: ? Cone biopsy: 2007 negative for dysplasia Other: ? Additional clinical information: 02/04, 08/07, 02/05, 10/08 paps negative ? SPECIMEN ADEQUACY ? Satisfactory for Evaluation - transformation zone component present GENERAL CATEGORIZATION ? Negative for Intraepithelial Lesion or Malignancy INTERPRETATION ? Reactive cellular changes associated with inflammation present (includes repair). ? Document reviewed and electronically signed by: ? BRIAN XAVIER MD ? Report Date: ??11/09/2012 11:02 End of Report [facility] 10/28/2012 10/31/2012 Elva Madden CHIEF CONSOLE OPERATOR PATHOLOGY ORDERABLES [facility] [address] [place] [address] documented in this encounter Visit Diagnoses Not on filedocumented in this encounter
--- OUTSIDE RECORDS SUMMARY | 2024-08-14 19:58 | XMS_ITS | Encounter Summary ---
Author Organization [facility] [place] [address] Care Team Providers Care Impregnating Helper Name Role Phone Priscilla Salvador APRN Primary Care Provider +1- [phone] Reason for Visit * Reason Comments Medication Refill Encounter Details Date Type Department Care Team (Late st Contact Info) Description 04/26/2015 [place] [address] Bin Mark MD [facility] DR [place] [address] Social History Tobacco Use Types Packs/Day Years Used Date Smoking Tobacco: Every Day Cigarettes 1 20 Sex and Gender Information Value Date Recorded Sex Assigned at Not on file Gender Identity Not on file Sexual Orientation Not on file documented as of this encounter Miscellaneous Notes * Telephone Encounter - Aurea Galicia RN - 04/26/2015 4:16 PM EDT Patient requested this through eDH on April 04 but it went to an account. She is looking forlab results from [place] and a prescription refill. documented in this encounter Plan of Treatment Not on file documented as of this encounter Visit Diagnoses Not on filedocumented in this encounter Care Teams Impregnating Helper Relationship Specialty Start Date End Date Priscilla Salvador APRN [facility] [address] [place] [address] PCP - General 10/21/10 documented as of this encounter
--- OUTSIDE RECORDS SUMMARY | 2024-08-14 19:58 | XMS_ITS | Encounter Summary ---
Author Organization [facility] Address [address] [place] [address] Care Team Providers Care Coordinate Measuring Equipment Operator Name Role Phone Unavailable Primary Care Provider Unavailabl e Encounter Details Date Type Department Care Team (Late st Contact Info) Description 02/13/2010 Results Only [facility] Laboratory Services - [facility] ([facility]) [address] [place], [place] [address] Elva Madden, [facility] [address] [address] Social History Tobacco Use Types [...] Priority Date/Time Associated Diagnosis Comments CYTOPATHOLOGY Routine 02/13/2010 0:00 EDT documented in this encounter Results * CYTOPATHOLOGY (02/13/2010 0:00 EDT) Pathology Report: CYTOPATHOLOGY REPORT ? Reports generated via electronic interface contain original data; ? however they are lacking the format of the original report. ? Caution should be taken when reading/interpreti ng unformatted reports. ? Name: ? MOLLY WEBER ? Accession #: ? [id number] ? : ? 1965 (Age: 44) ??F ?Collect Date: ? 02/13/2010 ? Location: ? [facility] ? Receive Date: ? 02/14/2010 ? Provider: ?ELVA EVA SENIOR SITE MANAGER ? Copy to: ? Specimen/Source: ?Pap Test, Cervix/Endocervix, ThinPrep Imaging System ? with manual evaluation ? Last Menstrual Period: ? 2/26/10 ? Hormonal/Contracep tive Status: ? Tubal ligation ? Previous Gynecologic Pathology: ? HSIL: 8/07, 8/08 ? HPV: 8/07 ? NATE III: also 10/08, 4/09 normal pap ? Treatment History: ? Cervical biopsy: 10/07 X 2 ? LEEP: 1/08 ? Cone biopsy: 1/08 ? Other: ? HPVA - HPV testing requested if ASC-US on the current ThinPrep Pap test. ? SPECIMEN ADEQUACY ? Satisfactory for Evaluation ? - transformation zone component present ? GENERAL CATEGORIZATION ? Negative for Intraepithelial Lesion or Malignancy ? Document reviewed and electronically signed by: ? Patrizia B. Rahul, SCT(ASCP) ? Report Date: ??02/17/2010 15:11 ? End of Report ? [facility] 02/13/2010 02/14/2010 Elva Madden SENIOR SITE MANAGER PATHOLOGY ORDERABLES [facility] [address] [place] [address] documented in this encounter Visit Diagnoses Not on filedocumented in this encounter
--- OUTSIDE RECORDS SUMMARY | 2024-08-14 19:58 | XMS_ITS | Encounter Summary ---
Author Organization [facility] [address] Care Team Providers Care Sports Trainer Name Role Phone Priscilla Salvador APRN Primary Care Provider +1- [phone] Encounter Details Date Type Department Care Team (Late st Contact Info) Description 01/31/2014 External Results [place] [address] Duyen Garcia MD [facility] [place] [address] Hyperthyroidism Social History Tobacco Use Types Packs/Day [...] Date/Time Associated Diagnosis Comments T3 TOTAL STAT 01/23/2014 4:44 PM EST Hyperthyroidism T4, FREE Routine 01/23/2014 4:44 PM EST Hyperthyroidism documented in this encounter Results * (ABNORMAL) T4, free (01/23/2014 4:44 PM EST) Free T4 1.70(RN OPERATING ROOM AL/ABN) Blood specimen (specimen) Duyen Garcia MD CHEMISTRY ORDERAB LES * (ABNORMAL) T3 (01/23/2014 4:44 PM EST) T3 Total 195(EXTERNA L/ABN) Blood specimen (specimen) Duyen Garcia MD CHEMISTRY ORDERAB LES documented in this encounter Visit Diagnoses Diagnosis Hyperthyroidism Thyrotoxicosis without mention of goiter or other cause, without mention of thyrotoxic crisis or storm documented in this encounter Care Teams Sports Trainer Relationship Specialty Start Date End Date Priscilla Salvador, YEFRI [facility] [address] [place] [address] PCP - General 10/21/10 documented as of this encounter
--- OUTSIDE RECORDS SUMMARY | 2024-08-14 19:58 | XMS_ITS | Encounter Summary ---
Author Organization [facility] Address [address] [place] [address] Care Team Providers Care Disc Ruler Operator Name Role Phone Unavailable Primary Care Provider Unavailabl e Encounter Details Date Type Department Care Team (Late st Contact Info) Description 09/27/2007 Results Only [facility] - [facility] conversion [address] [place] [address] Elizabeth Jarvis MD [address] [place] [address] [place] [address] Social History Tobacco Use Types Packs/Day Years Used Date Smoking Tobacco: Never Assessed Sex and Gender Information Value Date Recorded Sex Assigned at Not on file Gender Identity Not on file Sexual Orientation Not on file documented as of this encounter Plan of Treatment Not on file documented as of this encounter Procedures Procedure Name Priority Date/Time Associated Diagnosis Comments SURGICAL PATHOLOGY Routine 09/27/2007 0:00 EDT documented in this encounter Results * SURGICAL PATHOLOGY (09/27/2007 0:00 EDT) Pathology Report: SURGICAL PATHOLOGY REPORT Reports generated via electronic interface contain original data; however they are lacking the format of the original report. Caution should be taken when reading/interpreting unformatted reports. Name: ? MOLLY WEBER ? Accession #: ? [id number] ? : ? 1965 (Age: 42) ??F ? Collect Date: ? 09/27/2007 ? Location: ? [facility] ? Receive Date: ? 09/28/2007 ? Provider: ELIZABETH JARVIS MD Copy to: ? Final Pathologic Diagnosis: A. ?Cervix, 6 o'clock, biopsy: 1. ?High grade squamous intraepithelial lesion (NATE II) with involvement of endocervical glands. ??See comment. B. ?Cervix, 2 o'clock, biopsy: 1. ?High grade squamous intraepithelial lesion (NATE III). C. ?Endocervix, curettage: 1. ?Multiple detached fragments of high grade squamous intraepithelial lesion (NATE II and III). ??See comment. 2. ? Fragments of benign endocervical and ectocervical mucosa. Comment: ? Selected slides have been reviewed at intradepartmental consultation conference. ??Specimen (C) consists of numerous detached fragments of high grade dysplasia. ??There is no associated stroma to assess for possible invasion. ??(Dr. Peterson)/[facility] Document reviewed and electronically signed by: Gianna Mai MD Report ??Date: 09/29/2007 15:28 By the signature above, the attending physician certifies that he/she has personally conducted a gross and/or microscopic examination of the described specimens and rendered or confirmed the above diagnosis. Specimen(s) Received: A. ?6 o'clock B. ? 2 o'clock C. ? ECC Clinical History: ? Colposcopy bx from cervix; epithelial cell abnormality, HSIL 07/25/07 Gross Description: ? Received in formalin labelled Gabrieli and #1 6 o'clock colposcopy bx is a light gee biopsy measuring 0.3 x 0.2 x 0.2 cm. ??The specimen is submitted intact as (A). Received in formalin labelled Gabrieli and colpo bx at 2 o'clock is a gee-pink biopsy measuring 0.4 x 0.3 x 0.2 cm. ??Attached to the specimen is a small amount of clotted blood. ??The specimen is submitted intact as (B). Received in formalin labelled Gabrieli and colpo bx ECC is 1.0 cc of blood tinged mucus admixed with fragments of red-brown tissue. ??The specimen is entirely submitted as (C). ??(BRAVO Lentz)/[facility] End of Report [facility] 09/27/2007 09/28/2007 10: 40 EDT Elizabeth Jarvis MD PATHOLOGY ORDERABLES [facility] [address] [place] [address] documented in this encounter Visit Diagnoses Not on filedocumented in this encounter
--- OUTSIDE RECORDS SUMMARY | 2024-08-14 19:58 | XMS_ITS | Encounter Summary ---
Author Organization [facility] Address [address] [place] [address] Care Team Providers Care Warehouse Distribution Associate Name Role Phone Unavailable Primary Care Provider Unavailabl e Encounter Details Date Type Department Care Team (Late st Contact Info) Description 08/09/2008 Before PRISM Converted Visit (Maple) [facility] - [facility] conversion [address] [place] [address] Elizabeth Jarvis MD [address] [place] [address] [place] [address] Social History Tobacco Use Types Packs/Day Years Used Date Smoking Tobacco: Never Assessed Sex and Gender Information Value Date Recorded Sex Assigned at Not on file Gender Identity Not on file Sexual Orientation Not on file documented as of this encounter Plan of Treatment Not on file documented as of this encounter Procedures Procedure Name Priority Date/Time Associated Diagnosis Comments SURGICAL PATHOLOGY Routine 08/09/2008 0:00 EDT documented in this encounter Results * SURGICAL PATHOLOGY (08/09/2008 0:00 EDT) Pathology Report: SURGICAL PATHOLOGY REPORT ? Reports generated via electronic interface contain original data; ? however they are lacking the format of the original report. ? Caution should be taken when reading/interpreti ng unformatted reports. ? Name: ? WEBER, MOLLY ? Accession #: ? [id number] ? : ? 1965 (Age: 43) ??F ? Collect Date: ? 08/09/2008 ? Location: ? [facility] ? Receive Date: ? 08/10/2008 ? Provider: ELIZABETH BENNIE MD ? Copy to: ? Final Pathologic Diagnosis: ? A. ?Cervix, 2 o'clock, biopsy: ? 1. ?High grade squamous intraepithelial lesion (NATE III) extending into endocervical glands. ? B. ?Cervix, 5 o'clock, biopsy: ? 1. ?Chronic cervicitis with extensive squamous metaplasia. ? 2. ? No evidence of dysplasia. ? C. ?Cervix, 8 o'clock, biopsy: ? 1. ?Chronic cervicitis with extensive squamous metaplasia. ? 2. ? No evidence of dysplasia. ? D. ?Cervix, 11 o'clock, biopsy: ? 1. ?Chronic cervicitis with extensive squamous metaplasia. ? 2. ? No evidence of dysplasia. ? E. ?Cervix, 12 o'clock, biopsy: ? 1. ?? High grade squamous intraepithelial lesion (NATE III). ? F. ? Endocervix, curettage: ? 1. ?? Benign endocervical glands. ? 2. ?? No dysplasia. ? Document reviewed and electronically signed by: ? Hali Noland MD ? Report ??Date: 08/14/2008 16:38 ? By the signature above, the attending physician certifies that he/she has ? personally conducted a gross and/or microscopic examination of the described ? specimens and rendered or confirmed the above diagnosis. ? Specimen(s) Received: ? Cx ? A. ??2 o'clock ? B. ??5 o'clock ? C. ??8 o'clock ? D. ??11 o'clock ? E. ??12 o'clock ? F. ??Endocervical curettage ? Clinical History: ? 8/21/08 HSIL suspicious for invasion, LEEP cone /11/08 ? Gross Description: ? Received in formalin labelled Weber and cervix 2 o'clock. ??The ? specimen consists of a single 0.5 x 0.2 x 0.2 cm bob-gee irregular soft tissue submitted in toto as (A). ? Received in formalin labelled Weber and cervix 5 o'clock. ??The specimen ?? consists of a single 0.2 x 0.2 x 0.1 cm bob-gee irregular soft tissue submitted in toto as (B). ? Received in formalin labelled Weber and cervix 8 o'clock. ??The specimen ?? consists of a single 0.3 x 0.2 x 0.1 cm bob-gee irregular soft tissue submitted in toto as (C). ? Received in formalin labelled Weber and cervix 11 o'clock. ??The specimen ?? consists of a single 0.4 x 0.3 x 0.2 cm bob-gee irregular soft tissue, ? submitted in toto as (D). ? Received in formalin labelled Weber and cervix 12 o'clock. ??The specimen ?? consists of a single 0.2 x 0.2 x 0.1 cm pink-gee irregular soft tissue, ? submitted in toto as (E). ? Received in formalin labelled Weber and endo cx. ??The specimen consists of a 0.3 x 0.3 x 0.1 cm aggregate of predominantly mucus admixed with scant soft ?? tissue fragments submitted in toto as (F). ??(Almaz Montes)/[facility] ? End of Report ? PAULETTE PEREZ 08/09/2008 08/10/2008 14: 53 EDT Elizabeth Jarvis MD PATHOLOGY ORDERABLES [facility] [address] [place] [address] documented in this encounter Visit Diagnoses Not on filedocumented in this encounter
--- OUTSIDE RECORDS SUMMARY | 2024-08-14 19:58 | XMS_ITS | Encounter Summary ---
Author Organization [facility] [place] [address] Care Team Providers Care Military Logistics Specialist Name Role Phone Priscilla Salvador APRN Primary Care Provider +1- [phone] Encounter Details Date Type Department Care Team (Late st Contact Info) Description 09/07/2014 Orders [place] [address] Bin Mark MD [facility] [place] [address] Hyperthyroidism Social History Tobacco Use Types Packs/Day Years Used Date Smoking Tobacco: Every Day Cigarettes 1 20 Sex and Gender Information Value Date Recorded Sex Assigned at Not on file Gender Identity Not on file Sexual Orientation Not on file documented as of this encounter Plan of Treatment Not on file documented as of this encounter Visit Diagnoses Diagnosis Hyperthyroidism Thyrotoxicosis without mention of goiter or other cause, without mention of thyrotoxic crisis or storm documented in this encounter Care Teams Military Logistics Specialist Relationship Specialty Start Date End Date Priscilla Salvador APRN [facility] [address] [place] [address] PCP - General 10/21/10 documented as of this encounter
--- OUTSIDE RECORDS SUMMARY | 2024-08-14 19:58 | XMS_ITS | Encounter Summary ---
Author Organization [facility] [place] [address] Care Team Providers Care Herd Tester Name Role Phone Priscilla Salvador APRN Primary Care Provider [phone] Encounter Details Date Type Department Care Team (Late st Contact Info) Description 06/07/2014 Orders [place] [address] Bin Mark MD [facility] [place] [address] Hyperthyroidism (Primary Dx) Social History Tobacco Use Types Packs/Day Years Used Date Smoking Tobacco: Every Day Cigarettes 1 20 Sex and Gender Information Value Date Recorded Sex Assigned at Not on file Gender Identity Not on file Sexual Orientation Not on file documented as of this encounter Progress Notes * Bin Mark MD - 06/07/2014 8:13 AM EDT Spoke to Ms Mercado. Informed her that her thyroid labs look good and she should continue methimazole 5 mg alternating with 2.5 mg. Thyroid testing in 2months. documented in this encounter Plan of Treatment Not on file documented as of this encounter Visit Diagnoses Diagnosis Hyperthyroidism- Primary Thyrotoxicosis without mention of goiter or other cause, without mention of thyrotoxic crisis or storm documented in this encounter Care Teams Herd Tester Relationship Specialty Start Date End Date Priscilla Salvador, [facility] [address] [place] [address] PCP - General 10/21/10 documented as of this encounter
--- OUTSIDE RECORDS SUMMARY | 2024-08-14 19:58 | XMS_ITS | Encounter Summary ---
Author Organization [facility] Address [address] [place] [address] Care Team Providers Care Assistant Store Manager Name Role Phone Unknown, Provider Primary Care Provider [phone] Yisel Harman NP Primary Care Provider [phone] Encounter Details Date Type Department Care Team (Late st Contact Info) Description 08/11/2005 Before PRISM Converted Visit (Maple) [facility] - Maple conversion [address] [place] [address] Franklin Kasper MD [address] [place] [address] Social History Tobacco Use Types Packs/Day Years Used Date Smoking Tobacco: Never Assessed Sex and Gender Information Value Date Recorded Sex Assigned at Not on file Gender Identity Not on file Sexual Orientation Not on file documented as of this encounter Plan of Treatment Not on file documented as of this encounter Procedures Procedure Name Priority Date/Time Associated Diagnosis Comments RESIDENTIAL DETAILED 08/11/2005 17:54 EDT documented in this encounter Results * RESIDENTIAL DETAILED (08/11/2005 17:54 EDT) Anatomical Region Laterality Modality Other 08/11/2005 17:5 4 EDT Narrative 06/28/2009 2:42 EDT [id number]; AMA Please refer to the separate [facility] report. Procedure Note Nicanor Meyer MD - 06/28/2009 [id number]; AMA Please refer to the separate [facility] report. Franklin DO RESIDENTIAL ORDER FABIOLA documented in this encounter Visit Diagnoses Not on filedocumented in this encounter Care Teams Assistant Store Manager Relationship Specialty Start Date End Date Unknown, Provider, PCP - General 10/02/15 05/03/18 Yisel Harman NP [facility] [place] [address] PCP - General 05/04/18 documented as of this encounter
== END 2024-08-14 19:50 | disposition home or self-care (01) ==
LOC: NCHCN 19:49
PROVIDERS: PCP Nurse Practitioner Family; Visit Provider Nurse Practitioner Family
DX: Z00.00 Encounter for general adult medical examination without abnormal findings (principal)
CPT/HCPCS: 80048; 84443

== ENCOUNTER 2025-01-12 19:34 | Outpatient (REF) | payer BC, SELFPAY ==
[2025-01-13 12:41] LABS: HSV 1 DNA Result Negative (Negative); HSV 2 DNA Result Negative (Negative)
== END 2025-01-12 19:35 | disposition home or self-care (01) ==
LOC: LBN 19:34
PROVIDERS: PCP Nurse Practitioner Family; Visit Provider Obstetrics & Gynecology Gynecology
DX: B02.9 Zoster without complications (principal)
CPT/HCPCS: 86790; 87529

== ENCOUNTER 2025-02-23 00:49 | Outpatient (CLI) | payer BC, SELFPAY ==
--- NOTE | 2025-02-23 07:00 | DI.MAMMO_ITS ---
Exam(s) MG MAMMO SCREENING 60 MIN DUR EXAM: MG MAMMO SCREENING 60 MIN DUR CLINICAL HISTORY: breast cancer screening,augmentation mammoplasty,z12.39. TECHNIQUE: Bilateral full field digital CC and MLO mammographic images were obtained with 3D tomosyn thesis and utilizing computer aided detection (CAD). Both conventional and implant displacement views were performed. COMPARISON: Prior mammograms were reviewed. FINDINGS: There are retropectoral breast implants again noted. There are no new spiculated masses nor malignant appearing microcalcification groups. There is no significant architectural distortion nor skin thickening-retraction. IMPRESSION: No radiographic evidence of malignancy. BI-RADS Category 1 - Negative Breast Density - Category A - Almost entirely fatty Breast density Category C or D implies that the patient has dense breast tissue. Dense breast tissue can make it harder to find cancer on a mammogram. Dense breast tissue is also associated with an incr eased risk of breast cancer. This information about the result of the mammogram report was provided to the patient to raise their awareness. Use this report when you speak with the patient about their risks for breast cancer, which includes their family history. At that time, you may recommend additional screening tests (Ultrasoun d or MRI) as these tests may add significant information. A negative radiographic report should not delay biopsy if a dominant or clinically suspicious mass is present. Up to ten percent of cancers are not identified on mammography. A negative report may reinforce clinical impression. Adenosis and dense breasts may obscure an underlying neoplasm. False positive reports average 6 to 10%. Patient will receive a letter notifying them of these results.
== END 2025-02-23 01:09 ==
LOC: DI 00:49
PROVIDERS: PCP Nurse Practitioner Family; Visit Provider Obstetrics & Gynecology
DX: Z12.31 Encounter for screening mammogram for malignant neoplasm of breast (principal); R92.313 Mammographic fatty tissue density, bilateral breasts
CPT/HCPCS: 77063; 77067

== ENCOUNTER 2025-08-16 15:23 | Outpatient (REF) | payer BC, SELFPAY ==
[2025-08-16 19:50] LABS: ALT 34 U/L (14-59); AST 21 U/L (15-37); Albumin 4.1 g/dL (3.4-5.0); Alkaline Phosphatase 88 U/L (46-116); Anion Gap 7.7 mmol/L (3-11); BUN 23 mg/dL (7-18); Bilirubin, Total 0.3 mg/dL (0.2-1.0); CO2 30.3 mmol/L (21.0-32.0); Calcium 9.4 mg/dL (8.5-10.1); Chloride 104 mmol/L (98-107); Estimated GFR 85.35 (mL/min/1.73m2); Glucose 95 mg/dL (74-106); Potassium 4.5 mmol/L (3.5-5.1); Sodium 142 mmol/L (136-145); TSH 2.89 uIU/mL (0.36-3.74); Total Protein 7.4 g/dL (6.4-8.2)
[2025-08-17 19:36] LABS: Hepatitis C Ab w Rflx HCV PCR Negative (Negative)
== END 2025-08-16 15:24 | disposition home or self-care (01) ==
LOC: NCHCN 15:23
PROVIDERS: PCP Nurse Practitioner Family; Visit Provider Nurse Practitioner Family
DX: Z00.00 Encounter for general adult medical examination without abnormal findings (principal); Z11.59 Encounter for screening for other viral diseases; Z13.1 Encounter for screening for diabetes mellitus
CPT/HCPCS: 80053; 86803; 84439; 84443